=== PATIENT | male | born 1945 | race Caucasian/White ===

== ENCOUNTER 2017-05-20 12:59 | Inpatient (IN) | payer MEDICARE, BC ==
[~2017-05-20] VITALS: Ht 177.8 cm; Wt 101.5 kg
[~2017-05-20 12:59] MED LIST: ALBUTEROL SULFAT3 M3 IH; ALBUTEROL0.83 MG/ML IH; AMLODIPINE5 MG PO; AMOXICILLIN 8751 TAB PO; ASPIRIN 32325 MG/TAB PO; ASPIRIN 81M81 MG/TA2 PO; ASPIRIN E.C. 8181 MG PO; ATIVAN 0.50.5 MG/TAB PO; ATIVAN 1MG T1 MG/TAB PO; ATIVAN0.5 MG PO; ATORVASTATIN PO; CARAFATE 1GM1 G PO; CEPHALEXIN500 M1 PO; CLOPIDOGREL PO; COMBIRESP IH; COMBIVENT INH14.7 GM IH; CORGARD 40M40 MG/TAB; CORGARD 40M40 MG/TAB PO; CORGARD20 MG PO; CORGARD40 MG PO; COUMADIN; COUMADIN 22.5 MG/TAB PO; COUMADIN 5MG5 MG/TAB PO; COUMADIN 77.5 MG/TAB PO; DIOVAN 160MG160 MG PO; DIOVAN 80MG80 MG PO; DIOVAN80 M1 PO; DIOVAN80 MG PO; EFFIENT10 MG PO; EFFIENT5 MG PO; FERROUS SU325 MG/TAB PO; GLUCOPHAGE XR500 M1 PO; HYDROCOD BIT &120 ML PO; IMDUR 30MG30 MG/TAB PO; IMDUR 60MG60 MG/TAB PO; IRON325 MG PO; KLOR-CON 1010 MEQ PO; LOVENOX 100100 MG/ML SQ; MUCINEX 60600 MG/TA1 PO; NADOLOL PO; NITRO-DUR0.4 MG/PAT TD; NITROSTAT0.4 MG/TAB SL; NORCO 325 MG-51 TAB PO; NORVASC 10MG10 MG PO; NORVASC 5MG5 MG/TAB PO; NORVASC2.5 MG PO; PREDNISONE10 MG PO; PRILOSEC 20MG20 MG PO; PROTONIX 40MG T40 MG PO; QUININE; TRICOR 48MG48 MG PO; TYLENOL 500MG500 MG PO; TYLENOL ARTHRI650 M1 PO; XANAX .25M0.25 MG/TA PO; ZEBETA 5MG5 MG PO; ZETIA 10MG TAB10 MG PO; [UNRECOGNIZED DRUG - OTHER] PO
[2017-05-20 13:35] LABS: BASO # 0.1 (0.0-0.2); BASO % 1.1 % (0.0-2.0); EOS # 0.3 (0.0-0.7); EOS % 3.5 % (0-4.0); GRAN % 67.6 % (42.2-75.2); HEMATOCRIT 38.5 % (42.0-52.0); LYMPH # 1.4 (1.2-3.4); LYMPH % 18.2 % (20.0-51.0); MEAN CELL VOLUME 83 fl (80.0-100.0); MEAN CORPUSCULAR HEMOGLOBIN 25 pg (27.0-31.0); MEAN CORPUSCULAR HGB CONC 30 g/dl (33.0-37.0); MEAN PLATELET VOLUME 9.4 fl (7.4-10.4); MONO # 0.7 (0.1-0.6); MONO % 9.2 % (1.7-9.3); PLATELET COUNT 280 K/mm3 (130-400); RED BLOOD COUNT 4.63 M/mm3 (4.20-5.60); REDCELL DISTRIBUTION WIDTH-CV 15.9 % (11.5-14.5); WHITE BLOOD COUNT 7.4 K/mm3 (4.8-10.8)
[2017-05-20 13:36] LABS: HEMOGLOBIN 11.6 g/dl (13.5-18.0)
[2017-05-20 13:40] LABS: INR 2.2 (0.8-3.0); PROTHROMBIN TIME 25.3 SECONDS (9.7-12.8)
[2017-05-20 14:20] LABS: ADJUSTED CALCIUM 10.2 mg/dL (8.4-10.2); ALBUMIN 4.1 gm/dL (3.5-5.0); BILIRUBIN,TOTAL 0.4 mg/dL (0.0-1.0); CALCIUM 10.3 mg/dL (8.4-10.2); CREATININE, serum 0.77 mg/dL (0.66-1.25); POTASSIUM 3.9 mmol/L (3.4-5.0)
[2017-05-20 16:33] LABS: TROPONIN-I 0.051 ng/mL (0.000-0.034)
[2017-05-20 18:26] VITALS: BP 121/78; PULSE 94; TEMP 98.4
[2017-05-20 20:54] VITALS: BP 135/61; PULSE 71; TEMP 98.1
[2017-05-21] VITALS (167 sets, daily range): BP systolic 111–168; BP diastolic 50–104; PULSE 69–76; TEMP 97.2–97.8; O2SAT 82–97
[2017-05-21 07:36] LABS: BASO % 0.5 % (0.0-2.0); EOS # 0.2 (0.0-0.7); EOS % 3.1 % (0-4.0); GRAN # 5.4 (1.4-6.5); GRAN % 72.2 % (42.2-75.2); LYMPH # 1.2 (1.2-3.4); LYMPH % 15.6 % (20.0-51.0); MEAN CELL VOLUME 83 fl (80.0-100.0); MEAN CORPUSCULAR HGB CONC 31 g/dl (33.0-37.0); MEAN PLATELET VOLUME 9.4 fl (7.4-10.4); MONO # 0.6 (0.1-0.6); MONO % 8.3 % (1.7-9.3); PLATELET COUNT 234 K/mm3 (130-400); RED BLOOD COUNT 4.27 M/mm3 (4.20-5.60); REDCELL DISTRIBUTION WIDTH-CV 15.8 % (11.5-14.5); WHITE BLOOD COUNT 7.5 K/mm3 (4.8-10.8)
[2017-05-21 07:56] LABS: CALCIUM 9.6 mg/dL (8.4-10.2); CREATININE, serum 0.75 mg/dL (0.66-1.25); POTASSIUM 4.2 mmol/L (3.4-5.0)
[2017-05-21 07:57] LABS: HEMATOCRIT 35.4 % (42.0-52.0); HEMOGLOBIN 10.8 g/dl (13.5-18.0); MEAN CORPUSCULAR HEMOGLOBIN 25 pg (27.0-31.0)
[2017-05-21 08:07] LABS: INR 2.2 (0.8-3.0); PROTHROMBIN TIME 25.5 SECONDS (9.7-12.8)
[2017-05-21 08:09] LABS: TROPONIN-I 0.051 ng/mL (0.000-0.034)
[2017-05-22 02:58] VITALS: O2SAT 90
[2017-05-22 03:06] VITALS: BP 120/57; PULSE 72; TEMP 97.7
[2017-05-22 06:44] LABS: MEAN CELL VOLUME 82 fl (80.0-100.0); MEAN CORPUSCULAR HGB CONC 31 g/dl (33.0-37.0); MEAN PLATELET VOLUME 9.3 fl (7.4-10.4); PLATELET COUNT 261 K/mm3 (130-400); REDCELL DISTRIBUTION WIDTH-CV 15.8 % (11.5-14.5); WHITE BLOOD COUNT 12.7 K/mm3 (4.8-10.8)
[2017-05-22 06:53] LABS: INR 2.1 (0.8-3.0); PROTHROMBIN TIME 23.4 SECONDS (9.7-12.8)
[2017-05-22 06:58] LABS: HEMATOCRIT 35.2 % (42.0-52.0); HEMOGLOBIN 10.8 g/dl (13.5-18.0); MEAN CORPUSCULAR HEMOGLOBIN 25 pg (27.0-31.0)
[2017-05-22 06:59] LABS: ADD PATHOLOGY DIFF REVIEW NO
[2017-05-22 07:11] LABS: CALCIUM 9.9 mg/dL (8.4-10.2); CREATININE, serum 0.75 mg/dL (0.66-1.25); POTASSIUM 4.1 mmol/L (3.4-5.0)
[2017-05-22 08:00] LABS: BAND 14 % (0-10); NEUTROPHILS 81 % (42.0-75.2); TOTAL CELLS COUNTED 100
[2017-05-22 08:01] LABS: HYPOCHROMIA 2+
[2017-05-22 08:02] LABS: OVALOCYTES 1+; PLATELET ESTIMATE NORMAL (NORMAL); POIKILOCYTOSIS 1+
[2017-05-22 08:03] VITALS: BP 120/60; PULSE 71; TEMP 97.3
[2017-05-22 08:36] VITALS: BP 124/64; PULSE 82; TEMP 98.6
[2017-05-22] MEDS ORDERED: EFFIENT10 MG PO (11:34)
[2017-05-22 11:47] VITALS: BP 126/70; PULSE 72; TEMP 99.8
== END 2017-05-22 13:45 | disposition home or self-care (01) | DRG 247 ==
LOC: COL.ER 12:59 → MEDICAL 17:02 → ICU 05-21 17:58
PROVIDERS: Emergency Medicine; Family Medicine; Internal Medicine Cardiovascular Disease
PROC: B2111ZZ Fluoroscopy of Multiple Coronary Arteries using Low Osmolar Contrast (ICD-10-PCS; principal; 2017-05-21)
PROC: 027034Z Dilation of Coronary Artery, One Artery with Drug-eluting Intraluminal Device, Percutaneous Approach (ICD-10-PCS; 2017-05-21)
DX: I21.4 Non-ST elevation (NSTEMI) myocardial infarction (principal); I25.810 Atherosclerosis of coronary artery bypass graft(s) without angina pectoris; T82.858A Stenosis of other vascular prosthetic devices, implants and grafts, initial encounter; I50.32 Chronic diastolic (congestive) heart failure; Z95.810 Presence of automatic (implantable) cardiac defibrillator; I25.82 Chronic total occlusion of coronary artery; J44.9 Chronic obstructive pulmonary disease, unspecified; I11.0 Hypertensive heart disease with heart failure; F17.210 Nicotine dependence, cigarettes, uncomplicated; E11.9 Type 2 diabetes mellitus without complications; Z79.4 Long term (current) use of insulin; Z95.2 Presence of prosthetic heart valve; Z95.1 Presence of aortocoronary bypass graft; Z79.01 Long term (current) use of anticoagulants; I48.91 Unspecified atrial fibrillation; Z95.5 Presence of coronary angioplasty implant and graft; I34.0 Nonrheumatic mitral (valve) insufficiency; K27.7 Chronic peptic ulcer, site unspecified, without hemorrhage or perforation
CPT/HCPCS: 99222-AI; 99232-AI; 99239; C1725; C1760; C1769; C1874; C1887; C1894; C9600; G0378; J1200; J1644; J1650; J1815; J2060; J2250; J2930; J3010; Q9967

== ENCOUNTER 2018-01-20 13:41 | Inpatient (IN) | payer MEDICARE, BC ==
[~2018-01-20] VITALS: Ht 175.3 cm; Wt 105.9 kg
[2018-01-20] VITALS (205 sets, daily range): BP systolic 102–121; BP diastolic 49–77; PULSE 68–77; TEMP 97.4–98.4; O2SAT 61–100
[2018-01-20 14:07] LABS: BASO # 0.1 (0.0-0.2); BASO % 0.6 % (0.0-2.0); EOS # 0.2 (0.0-0.7); EOS % 2.8 % (0-4.0); GRAN # 6.3 (1.4-6.5); GRAN % 75.9 % (42.2-75.2); LYMPH % 12.4 % (20.0-51.0); MEAN CELL VOLUME 79 fl (80.0-100.0); MEAN CORPUSCULAR HGB CONC 27 g/dl (33.0-37.0); MEAN PLATELET VOLUME 9.2 fl (7.4-10.4); MONO # 0.7 (0.1-0.6); MONO % 8.1 % (1.7-9.3); PLATELET COUNT 284 K/mm3 (130-400); RED BLOOD COUNT 2.84 M/mm3 (4.20-5.60); REDCELL DISTRIBUTION WIDTH-CV 19.6 % (11.5-14.5)
[2018-01-20 14:10] LABS: HEMATOCRIT 22.4 % (42.0-52.0); HEMOGLOBIN 6.1 g/dl (13.5-18.0); MEAN CORPUSCULAR HEMOGLOBIN 21 pg (27.0-31.0)
[2018-01-20 14:15] LABS: CALCIUM 9.5 mg/dL (8.4-10.2); CREATININE, serum 0.78 mg/dL (0.66-1.25); POTASSIUM 4.1 mmol/L (3.4-5.0)
[2018-01-20 15:11] LABS: INR 3.1 (0.8-3.0); PROTHROMBIN TIME 35.4 SECONDS (9.7-12.8)
[2018-01-20] MEDS ORDERED: GLUCOPHAGE XR500 M1 PO (17:29)
[2018-01-20] MEDS ORDERED: NITROSTAT0.4 MG/TAB SL (17:33)
[2018-01-20] MEDS ORDERED: PROTONIX 40MG T40 MG PO (17:34)
[2018-01-20] MEDS ORDERED: EFFIENT10 MG PO (17:35)
[2018-01-20] MEDS ORDERED: K-DUR 10 MEQ T10 MEQ PO (17:35)
[2018-01-20] MEDS ORDERED: CARAFATE 1GM1 G PO (17:38)
[2018-01-20] MEDS ORDERED: PHENERGAN W/CO120 M1 PO (17:39)
[2018-01-20] MEDS ORDERED: TRIAMCINOLONE A15 GM TP (17:40)
[2018-01-20] MEDS ORDERED: TYLENOL 500MG500 MG PO (17:40)
[2018-01-20] MEDS ORDERED: COUMADIN 5MG5 MG/TAB PO ×2 (17:41→20:16)
[2018-01-20] MEDS ORDERED: AMOXICILLIN 50500 MG PO (17:41)
[2018-01-20] MEDS ORDERED: LIPITOR 80MG80 MG PO (17:42)
[2018-01-20] MEDS ORDERED: ZEBETA 5MG5 MG PO (17:42)
[2018-01-20] MEDS ORDERED: CELEXA10 MG PO (17:43)
[2018-01-20] MEDS ORDERED: LOTRISONE CREAM15 GM TP (17:43)
[2018-01-20] MEDS ORDERED: COMBIRESP IH (17:43)
[2018-01-20] MEDS ORDERED: TRICOR145 MG PO (17:44)
[2018-01-20] MEDS ORDERED: CLARITIN 1010 MG/TAB PO (17:44)
[2018-01-20] MEDS ORDERED: NORCO 325 MG-51 TAB PO (17:44)
[2018-01-20] MEDS ORDERED: ATIVAN 0.50.5 MG/TAB PO (17:45)
[2018-01-20] MEDS ORDERED: COUMADIN 77.5 MG/TAB PO (20:17)
[2018-01-20 20:59] LABS: HEMATOCRIT 22.7 % (42.0-52.0)
[2018-01-21] VITALS (140 sets, daily range): BP systolic 98–152; BP diastolic 31–79; PULSE 64–82; TEMP 97.9–98.6; O2SAT 84–100
[2018-01-21 01:29] LABS: HEMATOCRIT 22.6 % (42.0-52.0); HEMOGLOBIN 6.3 g/dl (13.5-18.0)
[2018-01-21 06:00] LABS: BASO # 0.1 (0.0-0.2); BASO % 0.7 % (0.0-2.0); EOS # 0.2 (0.0-0.7); EOS % 2.4 % (0-4.0); GRAN % 70.5 % (42.2-75.2); LYMPH # 1.1 (1.2-3.4); MEAN CELL VOLUME 80 fl (80.0-100.0); MEAN CORPUSCULAR HGB CONC 28 g/dl (33.0-37.0); MEAN PLATELET VOLUME 9.5 fl (7.4-10.4); MONO # 0.7 (0.1-0.6); PLATELET COUNT 258 K/mm3 (130-400); RED BLOOD COUNT 3.38 M/mm3 (4.20-5.60); REDCELL DISTRIBUTION WIDTH-CV 18.5 % (11.5-14.5)
[2018-01-21 06:01] LABS: HEMATOCRIT 27.1 % (42.0-52.0); HEMOGLOBIN 7.5 g/dl (13.5-18.0); MEAN CORPUSCULAR HEMOGLOBIN 22 pg (27.0-31.0)
[2018-01-21 06:02] LABS: INR 2.4 (0.8-3.0); PROTHROMBIN TIME 27.5 SECONDS (9.7-12.8)
[2018-01-21 06:13] LABS: CALCIUM 9.1 mg/dL (8.4-10.2); CHOLESTEROL RISK RATIO 3.4; CREATININE, serum 0.8 mg/dL (0.66-1.25); POTASSIUM 4.1 mmol/L (3.4-5.0)
[2018-01-21 06:22] LABS: TROPONIN-I 0.03 ng/mL (0.000-0.034)
[2018-01-21 10:08] LABS: HEMATOCRIT 26.9 % (42.0-52.0); HEMOGLOBIN 7.7 g/dl (13.5-18.0)
[2018-01-21 13:09] LABS: HEMATOCRIT 28.4 % (42.0-52.0); HEMOGLOBIN 8.1 g/dl (13.5-18.0)
[2018-01-21 21:19] LABS: HEMATOCRIT 26.9 % (42.0-52.0); HEMOGLOBIN 7.7 g/dl (13.5-18.0)
[2018-01-22] VITALS (17 sets, daily range): BP systolic 104–159; BP diastolic 28–88; PULSE 57–79; TEMP 97.6–98.9
[2018-01-22 06:40] LABS: HEMOGLOBIN 7.1 g/dl (13.5-18.0)
[2018-01-22 09:29] LABS: IRON,SERUM 28 ug/dL (35-150)
[2018-01-22 09:38] LABS: TOTAL IRON BINDING CAPACITY 355 ug/dL (261-462)
[2018-01-22 10:05] LABS: FERRITIN 9 ng/mL (18-464)
[2018-01-22 15:52] LABS: HEMATOCRIT 30.2 % (42.0-52.0); HEMOGLOBIN 8.7 g/dl (13.5-18.0)
[2018-01-22 21:09] LABS: HEMATOCRIT 27.7 % (42.0-52.0); HEMOGLOBIN 8.1 g/dl (13.5-18.0)
[2018-01-23] VITALS (462 sets, daily range): BP systolic 99–180; BP diastolic 51–93; PULSE 65–82; TEMP 97.6–98.2; O2SAT 74–100
[2018-01-23 06:56] LABS: BASO % 0.6 % (0.0-2.0); EOS # 0.2 (0.0-0.7); EOS % 3.2 % (0-4.0); GRAN # 4.7 (1.4-6.5); LYMPH # 0.8 (1.2-3.4); LYMPH % 12.4 % (20.0-51.0); MEAN CELL VOLUME 81 fl (80.0-100.0); MEAN CORPUSCULAR HGB CONC 29 g/dl (33.0-37.0); MEAN PLATELET VOLUME 9.4 fl (7.4-10.4); MONO # 0.6 (0.1-0.6); MONO % 9.5 % (1.7-9.3); PLATELET COUNT 218 K/mm3 (130-400); RED BLOOD COUNT 3.59 M/mm3 (4.20-5.60); REDCELL DISTRIBUTION WIDTH-CV 19.2 % (11.5-14.5)
[2018-01-23 07:16] LABS: HEMATOCRIT 28.9 % (42.0-52.0); HEMOGLOBIN 8.3 g/dl (13.5-18.0); MEAN CORPUSCULAR HEMOGLOBIN 23 pg (27.0-31.0)
[2018-01-23 07:18] LABS: CALCIUM 9.1 mg/dL (8.4-10.2); CREATININE, serum 0.73 mg/dL (0.66-1.25); POTASSIUM 4.2 mmol/L (3.4-5.0)
[2018-01-23 08:05] LABS: INR 1.4 (0.8-3.0); PROTHROMBIN TIME 15.4 SECONDS (9.7-12.8)
[2018-01-23 12:08] LABS: BASO # 0.1 (0.0-0.2); BASO % 0.6 % (0.0-2.0); EOS # 0.2 (0.0-0.7); EOS % 1.4 % (0-4.0); GRAN # 9.5 (1.4-6.5); GRAN % 88.3 % (42.2-75.2); LYMPH # 0.6 (1.2-3.4); LYMPH % 5.8 % (20.0-51.0); MEAN CELL VOLUME 81 fl (80.0-100.0); MEAN CORPUSCULAR HGB CONC 28 g/dl (33.0-37.0); MEAN PLATELET VOLUME 9.4 fl (7.4-10.4); MONO # 0.4 (0.1-0.6); MONO % 3.5 % (1.7-9.3); PLATELET COUNT 236 K/mm3 (130-400); RED BLOOD COUNT 3.92 M/mm3 (4.20-5.60); REDCELL DISTRIBUTION WIDTH-CV 19.8 % (11.5-14.5)
[2018-01-23 12:09] LABS: HEMATOCRIT 31.7 % (42.0-52.0); MEAN CORPUSCULAR HEMOGLOBIN 23 pg (27.0-31.0)
[2018-01-23 12:17] LABS: CALCIUM 9.1 mg/dL (8.4-10.2); CREATININE, serum 0.71 mg/dL (0.66-1.25); POTASSIUM 4.5 mmol/L (3.4-5.0)
[2018-01-23 12:29] LABS: TROPONIN-I 0.016 ng/mL (0.000-0.034)
[2018-01-23 12:36] LABS: ARTERIAL BLD GAS O2 SATURATION 92.1 % (92-100); ARTERIAL BLD GAS TCO2 CT 22.7; ARTERIAL BLOOD GAS BASE EXCESS -4.3 (-2-2); ARTERIAL BLOOD GAS HCO3 21.4 meq/L (22-26); ARTERIAL BLOOD GAS PCO2 41.7 mmHg (35-45); ARTERIAL BLOOD GAS pH 7.33 (7.35-7.45)
[2018-01-23 17:02] LABS: BASO % 0.2 % (0.0-2.0); EOS % 0.1 % (0-4.0); GRAN # 8.1 (1.4-6.5); GRAN % 93.6 % (42.2-75.2); LYMPH # 0.4 (1.2-3.4); LYMPH % 4.1 % (20.0-51.0); MEAN CELL VOLUME 80 fl (80.0-100.0); MEAN CORPUSCULAR HGB CONC 29 g/dl (33.0-37.0); MEAN PLATELET VOLUME 9.7 fl (7.4-10.4); MONO # 0.1 (0.1-0.6); PLATELET COUNT 225 K/mm3 (130-400); RED BLOOD COUNT 3.75 M/mm3 (4.20-5.60); REDCELL DISTRIBUTION WIDTH-CV 19.3 % (11.5-14.5)
[2018-01-23 17:06] LABS: HEMATOCRIT 30.1 % (42.0-52.0); HEMOGLOBIN 8.6 g/dl (13.5-18.0); MEAN CORPUSCULAR HEMOGLOBIN 23 pg (27.0-31.0)
[2018-01-23 17:15] LABS: CREATININE, serum 0.7 mg/dL (0.66-1.25); MAGNESIUM 1.6 mg/dL (1.6-2.3); PHOSPHOROUS 4.1 mg/dL (2.5-4.5); POTASSIUM 4.2 mmol/L (3.4-5.0)
[2018-01-23 17:32] LABS: TROPONIN-I 1.42 ng/mL (0.000-0.034)
[2018-01-24] VITALS (939 sets, daily range): BP systolic 105–126; BP diastolic 53–87; PULSE 61–77; TEMP 97–98; O2SAT 54–100
[2018-01-24 05:24] LABS: BASO % 0.2 % (0.0-2.0); EOS % 0.1 % (0-4.0); GRAN # 8.6 (1.4-6.5); LYMPH # 0.6 (1.2-3.4); LYMPH % 5.8 % (20.0-51.0); MEAN CELL VOLUME 82 fl (80.0-100.0); MEAN CORPUSCULAR HGB CONC 29 g/dl (33.0-37.0); MEAN PLATELET VOLUME 9.4 fl (7.4-10.4); MONO # 0.9 (0.1-0.6); MONO % 8.6 % (1.7-9.3); PLATELET COUNT 188 K/mm3 (130-400); RED BLOOD COUNT 3.25 M/mm3 (4.20-5.60); REDCELL DISTRIBUTION WIDTH-CV 19.7 % (11.5-14.5)
[2018-01-24 05:25] LABS: HEMATOCRIT 26.5 % (42.0-52.0); HEMOGLOBIN 7.6 g/dl (13.5-18.0); MEAN CORPUSCULAR HEMOGLOBIN 23 pg (27.0-31.0)
[2018-01-24 05:34] LABS: CALCIUM 9.1 mg/dL (8.4-10.2); CREATININE, serum 0.67 mg/dL (0.66-1.25); POTASSIUM 3.9 mmol/L (3.4-5.0)
[2018-01-24 05:42] LABS: ARTERIAL BLD GAS O2 SATURATION 91.8 % (92-100); ARTERIAL BLD GAS TCO2 CT 29.1; ARTERIAL BLOOD GAS BASE EXCESS 2.7 (-2-2); ARTERIAL BLOOD GAS HCO3 27.7 meq/L (22-26); ARTERIAL BLOOD GAS PCO2 45.3 mmHg (35-45); ARTERIAL BLOOD GAS PO2 66.4 mmHg (80-100); ARTERIAL BLOOD GAS pH 7.41 (7.35-7.45)
[2018-01-25] VITALS (346 sets, daily range): BP systolic 112–116; BP diastolic 52–57; PULSE 73–79; TEMP 97.1–97.2; O2SAT 85–100
[2018-01-25 05:24] LABS: MEAN CELL VOLUME 81 fl (80.0-100.0); MEAN CORPUSCULAR HGB CONC 30 g/dl (33.0-37.0); MEAN PLATELET VOLUME 9.5 fl (7.4-10.4); PLATELET COUNT 179 K/mm3 (130-400); RED BLOOD COUNT 3.72 M/mm3 (4.20-5.60); REDCELL DISTRIBUTION WIDTH-CV 19.5 % (11.5-14.5)
[2018-01-25 05:37] LABS: CALCIUM 9.2 mg/dL (8.4-10.2); CREATININE, serum 0.78 mg/dL (0.66-1.25); POTASSIUM 3.8 mmol/L (3.4-5.0)
[2018-01-25 05:38] LABS: HEMATOCRIT 30.2 % (42.0-52.0); HEMOGLOBIN 8.9 g/dl (13.5-18.0); MEAN CORPUSCULAR HEMOGLOBIN 24 pg (27.0-31.0)
[2018-01-25 05:50] LABS: BAND 6 % (0-10); BASOPHIL 2 % (0-2); HYPOCHROMIA 2+; LYMPHOCYTE 21 % (20.0-51.0); NEUTROPHILS 63 % (42.0-75.2); PLATELET ESTIMATE NORMAL (NORMAL)
[2018-01-25 05:51] LABS: ANISOCYTOSIS 2+; OVALOCYTES 1+
[2018-01-25] MEDS ORDERED: RANEXA 500MG T500 MG PO (09:58)
[2018-01-25] MEDS ORDERED: VASOTEC 5MG5 MG/TAB PO (09:58)
[2018-01-25] MEDS ORDERED: CEFTIN500 MG PO (10:00)
[2018-01-25] MEDS ORDERED: LASIX 40MG TABL40 MG PO (10:01)
[2018-01-25] MEDS ORDERED: FERROUS SU325 MG/TAB PO (10:01)
== END 2018-01-25 13:40 | disposition home or self-care (01) | DRG 981 ==
LOC: COL.ER 13:41 → SURG 15:44 → ICU 15:44 → SURG 01-21 14:32 → ICU 01-23 10:47
PROVIDERS: Emergency Medicine; Family Medicine; Hospitalist; Internal Medicine Pulmonary Disease; Nurse Practitioner; Physician Assistant
PROC: 0DJ08ZZ Inspection of Upper Intestinal Tract, Via Natural or Artificial Opening Endoscopic (ICD-10-PCS; 2018-01-22)
PROC: 0DJD8ZZ Inspection of Lower Intestinal Tract, Via Natural or Artificial Opening Endoscopic (ICD-10-PCS; 2018-01-22)
PROC: B2111ZZ Fluoroscopy of Multiple Coronary Arteries using Low Osmolar Contrast (ICD-10-PCS; principal; 2018-01-23)
PROC: 027034Z Dilation of Coronary Artery, One Artery with Drug-eluting Intraluminal Device, Percutaneous Approach (ICD-10-PCS; 2018-01-23)
PROC: 02703ZZ Dilation of Coronary Artery, One Artery, Percutaneous Approach (ICD-10-PCS; 2018-01-23)
PROC: 4A033BC Measurement of Arterial Pressure, Coronary, Percutaneous Approach (ICD-10-PCS; 2018-01-23)
DX: K92.1 Melena (principal); J96.01 Acute respiratory failure with hypoxia; I50.23 Acute on chronic systolic (congestive) heart failure; I21.4 Non-ST elevation (NSTEMI) myocardial infarction; J18.9 Pneumonia, unspecified organism; D62 Acute posthemorrhagic anemia; D13.2 Benign neoplasm of duodenum; D12.6 Benign neoplasm of colon, unspecified; I25.10 Atherosclerotic heart disease of native coronary artery without angina pectoris; E11.9 Type 2 diabetes mellitus without complications; I11.0 Hypertensive heart disease with heart failure; J44.9 Chronic obstructive pulmonary disease, unspecified; I48.0 Paroxysmal atrial fibrillation; Z95.810 Presence of automatic (implantable) cardiac defibrillator; Z95.5 Presence of coronary angioplasty implant and graft; Z95.2 Presence of prosthetic heart valve; Z95.1 Presence of aortocoronary bypass graft; Z79.01 Long term (current) use of anticoagulants; F17.210 Nicotine dependence, cigarettes, uncomplicated
CPT/HCPCS: 99223-AI; 99233-AI; 99239; C1725; C1751; C1760; C1769; C1874; C1887; C1894; C9113; J0153; J0690; J0696; J0881; J1200; J1815; J1940; J2250; J2270; J2704; J2916; J2930; J3010; J7030; P9016; Q9967

== ENCOUNTER → 2018-02-11 | Outpatient (CLI) | payer MEDICARE, BC ==
[~2018-02-11] MED LIST changes: +AMOXICILLIN 50500 MG PO; +CEFTIN500 MG PO; +CELEXA10 MG PO; +CLARITIN 1010 MG/TAB PO; +K-DUR 10 MEQ T10 MEQ PO; +LASIX 40MG TABL40 MG PO; +LIPITOR 80MG80 MG PO; +LOTRISONE CREAM15 GM TP; +PHENERGAN W/CO120 M1 PO; +RANEXA 500MG T500 MG PO; +TRIAMCINOLONE A15 GM TP; +TRICOR145 MG PO; +VASOTEC 5MG5 MG/TAB PO
== END ==
LOC: COL.RAD 13:17
DX: G31.1 Senile degeneration of brain, not elsewhere classified (principal); G62.9 Polyneuropathy, unspecified

== ENCOUNTER 2018-09-17 09:00 | Outpatient (RCR) | payer MEDICARE, BC ==
[2018-09-17] VITALS (9 sets, daily range): BP systolic 106–132; BP diastolic 54–69; PULSE 68–76; TEMP 97.2–98.7
[~2018-09-17] VITALS: Ht 175.3 cm; Wt 98.0 kg
[2018-09-17] MEDS ORDERED: VASOTEC 5MG5 MG/TAB PO (09:55)
[2018-09-17] MEDS ORDERED: FERRO-TIME325 MG PO (09:56)
[2018-09-17] MEDS ORDERED: LASIX 40MG TABL40 MG PO (09:57)
[2018-09-17] MEDS ORDERED: RANEXA 500MG T500 MG PO (10:02)
[2018-09-17 14:55] LABS: HEMOGLOBIN 9.7 g/dl (13.5-18.0)
[2018-09-17 15:08] LABS: HEMATOCRIT 31.7 % (42.0-52.0)
--- NOTE | 2018-09-17 15:20 | NUR ---
Pt lana blood tx well. Pt discharged per w/c by nurse with .
== END 2018-09-17 15:40 | disposition home or self-care (01) ==
LOC: EUO 09:00
PROVIDERS: Internal Medicine
DX: D50.0 Iron deficiency anemia secondary to blood loss (chronic) (principal)
CPT/HCPCS: J7050; P9016

== ENCOUNTER 2018-09-25 10:00 | Outpatient (RCR) | payer MEDICARE, BC ==
[~2018-09-25] VITALS: Ht 175.3 cm; Wt 100.5 kg
[2018-09-25] VITALS (9 sets, daily range): BP systolic 92–127; BP diastolic 39–87; PULSE 68–75; TEMP 97.3–99
[~2018-09-25 10:00] MED LIST changes: +FERRO-TIME325 MG PO
--- NOTE | 2018-09-25 14:55 | NUR ---
Pt lana blood tx well. Pt discharged per ambulation.
== END 2018-09-25 14:57 | disposition home or self-care (01) ==
LOC: EUO 10:00
DX: I20.9 Angina pectoris, unspecified (principal); R53.83 Other fatigue
CPT/HCPCS: J7050; P9016

== ENCOUNTER 2018-09-26 13:34 | Emergency (ER) | payer MEDICARE, BC ==
[~2018-09-26] VITALS: Ht 175.3 cm; Wt 100.0 kg
[2018-09-26 13:38] VITALS: TEMP 98.4
[2018-09-26 14:13] LABS: ARTERIAL BLD GAS O2 SATURATION 92.1 % (92-100); ARTERIAL BLOOD GAS HCO3 27.7 meq/L (22-26); ARTERIAL BLOOD GAS pH 7.43 (7.35-7.45)
[2018-09-26 14:37] LABS: BASO # 0.1 (0.0-0.2); BASO % 0.8 % (0.0-2.0); EOS # 0.4 (0.0-0.7); EOS % 3.8 % (0-4.0); GRAN % 76.5 % (42.2-75.2); HEMATOCRIT 38.3 % (42.0-52.0); HEMOGLOBIN 11.9 g/dl (13.5-18.0); LYMPH # 0.8 (1.2-3.4); LYMPH % 8.9 % (20.0-51.0); MEAN CELL VOLUME 90 fl (80.0-100.0); MEAN CORPUSCULAR HEMOGLOBIN 28 pg (27.0-31.0); MEAN CORPUSCULAR HGB CONC 31 g/dl (33.0-37.0); MEAN PLATELET VOLUME 9.6 fl (7.4-10.4); MONO # 0.9 (0.1-0.6); MONO % 9.5 % (1.7-9.3); PLATELET COUNT 216 K/mm3 (130-400); RED BLOOD COUNT 4.26 M/mm3 (4.20-5.60); REDCELL DISTRIBUTION WIDTH-CV 14.8 % (11.5-14.5)
[2018-09-26 14:51] LABS: ALBUMIN 3.7 gm/dL (3.5-5.0); BILIRUBIN,TOTAL 0.5 mg/dL (0.0-1.0); CALCIUM 10.1 mg/dL (8.4-10.2); CREATININE, serum 0.76 mg/dL (0.66-1.25); POTASSIUM 4.2 mmol/L (3.4-5.0); TOTAL PROTEIN 6.9 gm/dL (6.4-8.2)
[2018-09-26 15:23] LABS: PROLACTIN 13.8 ng/mL (3.7-17.9)
[2018-09-26 15:30] VITALS: BP 138/58; PULSE 82
== END 2018-09-26 15:30 | disposition home or self-care (01) ==
LOC: COL.ER 13:34
PROVIDERS: Family Medicine
DX: G45.9 Transient cerebral ischemic attack, unspecified (principal); R41.0 Disorientation, unspecified; I48.91 Unspecified atrial fibrillation; Z95.0 Presence of cardiac pacemaker; Z79.84 Long term (current) use of oral hypoglycemic drugs
CPT/HCPCS: J7030

== ENCOUNTER → 2018-12-04 | Outpatient (CLI) | payer MEDICARE, BC ==
[~2018-12-04] MED LIST changes: +PREDNISONE20 MG PO; +VALTREX1 GM PO
== END ==
LOC: COL.RAD 15:03
DX: G31.9 Degenerative disease of nervous system, unspecified (principal); G45.9 Transient cerebral ischemic attack, unspecified

== ENCOUNTER 2018-12-06 16:09 | Emergency (ER) | payer MEDICARE, BC ==
[~2018-12-06] VITALS: Ht 175.3 cm; Wt 118.2 kg
[~2018-12-06 16:09] MED LIST changes: -PREDNISONE20 MG PO; -VALTREX1 GM PO
[2018-12-06 16:14] VITALS: TEMP 98.4
[2018-12-06 16:45] LABS: BASO # 0.1 (0.0-0.2); BASO % 0.9 % (0.0-2.0); EOS # 0.4 (0.0-0.7); EOS % 4.4 % (0-4.0); GRAN # 6.7 (1.4-6.5); GRAN % 74.4 % (42.2-75.2); HEMATOCRIT 39.7 % (42.0-52.0); HEMOGLOBIN 12.4 g/dl (13.5-18.0); LYMPH % 10.8 % (20.0-51.0); MEAN CELL VOLUME 93 fl (80.0-100.0); MEAN CORPUSCULAR HEMOGLOBIN 29 pg (27.0-31.0); MEAN CORPUSCULAR HGB CONC 31 g/dl (33.0-37.0); MEAN PLATELET VOLUME 9.1 fl (7.4-10.4); MONO # 0.8 (0.1-0.6); MONO % 8.8 % (1.7-9.3); PLATELET COUNT 292 K/mm3 (130-400); RED BLOOD COUNT 4.29 M/mm3 (4.20-5.60); REDCELL DISTRIBUTION WIDTH-CV 16.8 % (11.5-14.5)
[2018-12-06 16:51] LABS: BILIRUBIN,TOTAL 0.3 mg/dL (0.0-1.0); CALCIUM 10.3 mg/dL (8.4-10.2); CREATININE, serum 0.98 (0.66-1.25); POTASSIUM 4.5 mmol/L (3.4-5.0); TOTAL PROTEIN 7.1 gm/dL (6.4-8.2)
[2018-12-06] MEDS ORDERED: PREDNISONE20 MG PO (18:01)
[2018-12-06] MEDS ORDERED: VALTREX1 GM PO (18:01)
[2018-12-06 18:28] VITALS: BP 121/53; PULSE 65
== END 2018-12-06 18:28 | disposition home or self-care (01) ==
LOC: COL.ER 16:09
PROVIDERS: Emergency Medicine
DX: R29.810 Facial weakness (principal); I25.10 Atherosclerotic heart disease of native coronary artery without angina pectoris; E11.9 Type 2 diabetes mellitus without complications; F17.210 Nicotine dependence, cigarettes, uncomplicated; I10 Essential (primary) hypertension; Z79.82 Long term (current) use of aspirin; Z79.02 Long term (current) use of antithrombotics/antiplatelets; Z86.73 Personal history of transient ischemic attack (TIA), and cerebral infarction without residual deficits; Z95.4 Presence of other heart-valve replacement
CPT/HCPCS: J7512

== ENCOUNTER 2019-03-19 14:05 | Outpatient (CLI) | payer MEDICARE, BC ==
[~2019-03-19] VITALS: Ht 175.3 cm; Wt 95.9 kg
[2019-03-19] VITALS (9 sets, daily range): BP systolic 97–132; BP diastolic 41–80; PULSE 62–75; TEMP 97.9–98.9
[~2019-03-19 14:05] MED LIST changes: +PREDNISONE20 MG PO; +VALTREX1 GM PO
[2019-03-19] MEDS ORDERED: PACERONE200 MG PO (14:40)
[2019-03-19] MEDS ORDERED: ASPIRIN E.C. 8181 MG PO (14:50)
[2019-03-19] MEDS ORDERED: CLARITIN 1010 MG/TAB PO (14:55)
[2019-03-19] MEDS ORDERED: CARAFATE 1GM1 G PO (14:57)
== END 2019-03-19 20:38 | disposition home or self-care (01) ==
LOC: EUO 14:05 → COL.LAB 14:05 → EUO 20:38
DX: I20.9 Angina pectoris, unspecified (principal); Z87.19 Personal history of other diseases of the digestive system
CPT/HCPCS: J7050; P9016

== ENCOUNTER 2019-03-29 07:29 | Outpatient (RCR) | payer MEDICARE, BC ==
[~2019-03-29] VITALS: Ht 175.3 cm; Wt 99.5 kg
[~2019-03-29 07:29] MED LIST changes: +PACERONE200 MG PO
[2019-03-29 07:30] VITALS: BP 120/51; PULSE 58; TEMP 98.1
[2019-03-29 07:35] LABS: MEAN CELL VOLUME 89 fl (80.0-100.0); MEAN CORPUSCULAR HGB CONC 29 g/dl (33.0-37.0); MEAN PLATELET VOLUME 9.4 fl (7.4-10.4); PLATELET COUNT 283 K/mm3 (130-400); RED BLOOD COUNT 3.87 M/mm3 (4.20-5.60); REDCELL DISTRIBUTION WIDTH-CV 19.5 % (11.5-14.5)
[2019-03-29 07:38] LABS: HEMATOCRIT 34.3 % (42.0-52.0); HEMOGLOBIN 9.9 g/dl (13.5-18.0); MEAN CORPUSCULAR HEMOGLOBIN 26 pg (27.0-31.0)
[2019-03-29] MEDS ORDERED: NATURAL IRON65 MG PO (07:49)
[2019-03-29 08:58] VITALS: BP 134/62; PULSE 70; TEMP 97.9
[2019-03-29 09:16] VITALS: BP 144/67; PULSE 66; TEMP 98.1
[2019-03-29 09:31] VITALS: BP 154/82; PULSE 70; TEMP 98.1
[2019-03-29 10:01] VITALS: BP 132/66; PULSE 70; TEMP 98.1
[2019-03-29 11:01] VITALS: BP 143/65; PULSE 70; TEMP 98.1
--- NOTE | 2019-03-29 11:25 | NUR ---
Pt lana blood tx well. Pt discharged per ambulation with cane with .
== END 2019-03-29 13:37 | disposition home or self-care (01) ==
LOC: EUO 07:29
PROVIDERS: Internal Medicine
DX: D50.0 Iron deficiency anemia secondary to blood loss (chronic) (principal); K92.2 Gastrointestinal hemorrhage, unspecified; I50.9 Heart failure, unspecified
CPT/HCPCS: J7050; P9016

== ENCOUNTER 2019-04-02 09:47 | Day surgery (SDC) | payer MEDICARE, BC ==
[2019-04-02] VITALS (15 sets, daily range): BP systolic 118–162; BP diastolic 57–87; PULSE 69–74; TEMP 9.9
[~2019-04-02] VITALS: Ht 175.4 cm; Wt 99.3 kg
[~2019-04-02 09:47] MED LIST changes: +NATURAL IRON65 MG PO
[2019-04-02 10:40] LABS: HEMATOCRIT 39.9 % (42.0-52.0); HEMOGLOBIN 11.7 g/dl (13.5-18.0); MEAN CELL VOLUME 87 fl (80.0-100.0); MEAN CORPUSCULAR HEMOGLOBIN 26 pg (27.0-31.0); MEAN CORPUSCULAR HGB CONC 29 g/dl (33.0-37.0); MEAN PLATELET VOLUME 9.3 fl (7.4-10.4); PLATELET COUNT 289 K/mm3 (130-400); RED BLOOD COUNT 4.59 M/mm3 (4.20-5.60); REDCELL DISTRIBUTION WIDTH-CV 20.2 % (11.5-14.5)
[2019-04-02 10:44] LABS: CALCIUM 9.9 mg/dL (8.4-10.2); CREATININE, serum 0.82 (0.66-1.25); POTASSIUM 4.7 mmol/L (3.4-5.0)
[2019-04-02 10:50] LABS: PROTHROMBIN TIME 12.2 SECONDS (9.7-12.8)
--- NOTE | 2019-04-02 11:25 | NUR ---
Pt to procedure,report to carrie Cueva.
--- NOTE | 2019-04-02 11:34 | NUR ---
SEE MERGE REPORT FOR MEDICATION ADMINISTRATION TIMES WELL INTRA/POST SEDATION ASSESSMENTS.
--- NOTE | 2019-04-02 13:49 | NUR ---
Report received pt to transfer to [facility]
--- NOTE | 2019-04-02 14:51 | NUR ---
1406 Pt complaning of chest pain at a 5. VSS. Pt falls back to sleep without continuous verbal stimuli. paged. 1432 No return call from . Pt asleep and snoring. When Pt woken and asked about pain he states pain is at a 5 and goes thru to his back. Pt's VSS. Pt fell back to sleep. EKG done. COATER paged. Jossy returned paged and notified of above. States she will review chart and ekg and call back. 1451 Jossy SNYDER called this RN and gave orders for nitro gtt. 1530 Pt states after repositioning states his CP and back has resolved. Will continue to [facility].
[2019-04-02] MEDS ORDERED: ASPIRIN 81M81 MG/TA2 PO (16:12)
[2019-04-02] MEDS ORDERED: PLAVIX 75MG TAB75 MG PO (16:14)
[2019-04-02] MEDS ORDERED: RANEXA 500MG T500 MG PO (16:16)
--- NOTE | 2019-04-02 18:45 | NUR ---
10cc of air removed from Safegaurd device. Small [place] of blood still present from the past 3 hours with no change. Will continue to [facility].
--- NOTE | 2019-04-02 19:08 | NUR ---
10CC OF AIR REMOVED FROM R FEMORAL SAFEGAURD DEVICE. NO CHANGES TO SMALL DRAINAGE FROM EARLIER. GROIN SOFT WITH NO PAIN. PULSES PALPABLE. WILL ENDORSE TO NIGHT RN.
[2019-04-03] VITALS: BP 122/77; PULSE 71; TEMP 98.4
[2019-04-03 04:00] VITALS: BP 101/55; PULSE 69; TEMP 98
[2019-04-03 05:21] LABS: HEMOGLOBIN 10.8 g/dl (13.5-18.0); MEAN CELL VOLUME 86 fl (80.0-100.0); MEAN CORPUSCULAR HEMOGLOBIN 26 pg (27.0-31.0); MEAN CORPUSCULAR HGB CONC 30 g/dl (33.0-37.0); MEAN PLATELET VOLUME 9.6 fl (7.4-10.4); PLATELET COUNT 277 K/mm3 (130-400); REDCELL DISTRIBUTION WIDTH-CV 19.7 % (11.5-14.5)
[2019-04-03 05:22] LABS: HEMATOCRIT 35.9 % (42.0-52.0)
[2019-04-03 05:28] LABS: CALCIUM 9.5 mg/dL (8.4-10.2); CREATININE, serum 0.73 (0.66-1.25); POTASSIUM 4.3 mmol/L (3.4-5.0)
[2019-04-03 05:51] LABS: ANISOCYTOSIS 2+; BAND 10 % (0-10); HYPOCHROMIA 1+; LYMPHOCYTE 2 % (20.0-51.0); NEUTROPHILS 88 % (42.0-75.2); PLATELET ESTIMATE NORMAL (NORMAL)
[2019-04-03 05:52] LABS: OVALOCYTES 1+
--- NOTE | 2019-04-03 07:10 | NUR ---
Bedside report recieved from JUNAID Lane. Patient resting in bed at this time and all questions asked answered. Right femoral site with safegaurd in place, no air to chamber instilled. Site with scant drainage, soft and free of hematoma. Patient denies chest pain or pressure. Nitro gtt infusing at ordered rate and verified at bedside. Care assumed.
[2019-04-03 07:30] VITALS: BP 125/54; PULSE 71; TEMP 98.2
--- NOTE | 2019-04-03 09:45 | NUR ---
Dr. Sam rounds at this time. DC orders recieved as entered CPOE.
[2019-04-03] MEDS ORDERED: IMDUR 60MG60 MG/TAB PO (10:02)
[2019-04-03] MEDS ORDERED: RANEXA 500MG T500 MG PO (10:02)
[2019-04-03] MEDS ORDERED: ASPIRIN E.C. 8181 MG PO (10:03)
--- NOTE | 2019-04-03 11:20 | NUR ---
D/C orders received, IV nitro stopped at this time.
--- NOTE | 2019-04-03 12:10 | NUR ---
DC education provided to patient and family. Understanding verbalized.
--- NOTE | 2019-04-03 12:20 | NUR ---
Patient taken to POC via WC for discharge.
== END 2019-04-03 12:20 | disposition home or self-care (01) ==
LOC: COL.CAR 09:47 → ICU 13:42 → COL.CAR 04-03 12:20
PROVIDERS: Internal Medicine Cardiovascular Disease; Nurse Practitioner
DX: I25.110 Atherosclerotic heart disease of native coronary artery with unstable angina pectoris (principal); R94.39 Abnormal result of other cardiovascular function study; I48.91 Unspecified atrial fibrillation; Z98.61 Coronary angioplasty status; Z88.3 Allergy status to other anti-infective agents; Z91.041 Radiographic dye allergy status; Z88.8 Allergy status to other drugs, medicaments and biological substances; Z86.73 Personal history of transient ischemic attack (TIA), and cerebral infarction without residual deficits; Z95.2 Presence of prosthetic heart valve; Z95.1 Presence of aortocoronary bypass graft
CPT/HCPCS: OP; J0583; J1644; J2250; J2930; J3010; Q9967

== ENCOUNTER 2020-01-17 20:56 | Emergency (ER) | payer MEDICARE, BC ==
[~2020-01-17] VITALS: Ht 177.8 cm; Wt 95.5 kg
[~2020-01-17 20:56] MED LIST changes: +PLAVIX 75MG TAB75 MG PO
[2020-01-17 21:01] VITALS: TEMP 97.9
[2020-01-17 21:41] LABS: ALBUMIN 4.3 gm/dL (3.5-5.0); BILIRUBIN,TOTAL 0.6 mg/dL (0.0-1.0); CALCIUM 10.2 mg/dL (8.4-10.2); CREATININE, serum 0.95 (0.66-1.25); TOTAL PROTEIN 7.5 gm/dL (6.4-8.2)
[2020-01-17 21:42] LABS: BASO # 0.1 (0.0-0.2); BASO % 1.1 % (0.0-2.0); EOS # 0.4 (0.0-0.7); EOS % 4.4 % (0-4.0); GRAN # 6.2 (1.4-6.5); GRAN % 69.2 % (42.2-75.2); HEMATOCRIT 40.4 % (42.0-52.0); HEMOGLOBIN 12.4 g/dl (13.5-18.0); LYMPH # 1.4 (1.2-3.4); LYMPH % 15.5 % (20.0-51.0); MEAN CELL VOLUME 94 fl (80.0-100.0); MEAN CORPUSCULAR HEMOGLOBIN 29 pg (27.0-31.0); MEAN CORPUSCULAR HGB CONC 31 g/dl (33.0-37.0); MEAN PLATELET VOLUME 9.5 fl (7.4-10.4); MONO # 0.9 (0.1-0.6); MONO % 9.5 % (1.7-9.3); PLATELET COUNT 240 K/mm3 (130-400); RED BLOOD COUNT 4.32 M/mm3 (4.20-5.60); REDCELL DISTRIBUTION WIDTH-CV 15.9 % (11.5-14.5)
[2020-01-17 21:52] LABS: TROPONIN-I 0.022 ng/mL (0.000-0.035)
[2020-01-17 22:38] VITALS: BP 124/53; PULSE 69
== END 2020-01-17 22:38 | disposition home or self-care (01) ==
LOC: COL.ER 20:56
PROVIDERS: Emergency Medicine
DX: R07.9 Chest pain, unspecified (principal); E11.9 Type 2 diabetes mellitus without complications; I10 Essential (primary) hypertension; I25.10 Atherosclerotic heart disease of native coronary artery without angina pectoris; E78.5 Hyperlipidemia, unspecified; Z95.810 Presence of automatic (implantable) cardiac defibrillator; Z95.1 Presence of aortocoronary bypass graft; Z79.84 Long term (current) use of oral hypoglycemic drugs
CPT/HCPCS: J7030

== ENCOUNTER 2020-06-21 09:05 | Outpatient (CLI) | payer MEDICARE, BC ==
[~2020-06-21] VITALS: Ht 177.8 cm; Wt 93.2 kg
[2020-06-21] MEDS ORDERED: RANEXA 500MG T500 MG PO (09:32)
[2020-06-21 09:33] VITALS: BP 109/69; PULSE 73
[2020-06-21 09:51] LABS: HEMATOCRIT 43.2 % (42.0-52.0); HEMOGLOBIN 14.4 g/dl (13.5-18.0); MEAN CELL VOLUME 98 fl (80.0-100.0); MEAN CORPUSCULAR HEMOGLOBIN 33 pg (27.0-31.0); MEAN CORPUSCULAR HGB CONC 33 g/dl (33.0-37.0); MEAN PLATELET VOLUME 9.6 fl (7.4-10.4); PLATELET COUNT 195 K/mm3 (130-400); RED BLOOD COUNT 4.42 M/mm3 (4.20-5.60); REDCELL DISTRIBUTION WIDTH-CV 14.1 % (11.5-14.5)
[2020-06-21 09:59] LABS: INR 1.1 (0.8-3.0); PROTHROMBIN TIME 12.4 SECONDS (9.7-12.8)
[2020-06-21 10:00] LABS: CREATININE, serum 0.81 (0.66-1.25); POTASSIUM 4.9 mmol/L (3.4-5.0)
[2020-06-21 11:15] VITALS: BP 109/62; PULSE 72
--- NOTE | 2020-06-21 11:15 | NUR ---
report from Tatiana QUIROGA. Pt doing well after PRABHA< he is gcs 15, pwd, easy breathing on room air. Pt aware of poc, pt is given water and juice which he is able to drink with no problem. wctm.
[2020-06-21 11:20] VITALS: BP 101/62; PULSE 70
[2020-06-21 11:35] VITALS: BP 112/71; PULSE 70
[2020-06-21 11:50] VITALS: BP 131/73; PULSE 73
[2020-06-21 12:05] VITALS: BP 109/73; PULSE 67
--- NOTE | 2020-06-21 12:10 | NUR ---
Pt is ready for discharge. I have reviewed discharge instructions with pt and who deny questions. IV is dc'd with cath intact, dressing applied. pt to exit via wheelchair.
== END 2020-06-21 12:15 | disposition home or self-care (01) ==
LOC: COL.RAD 09:05
PROVIDERS: Internal Medicine Cardiovascular Disease
DX: Z95.818 Presence of other cardiac implants and grafts (principal); Z95.0 Presence of cardiac pacemaker
CPT/HCPCS: J2704

== ENCOUNTER 2020-08-31 18:13 | Emergency (ER) | payer MEDICARE, BC ==
[~2020-08-31] VITALS: Ht 175.3 cm; Wt 90.9 kg
[2020-08-31 18:22] VITALS: TEMP 98.1
[2020-08-31 19:14] LABS: BASO # 0.1 (0.0-0.2); BASO % 0.9 % (0.0-2.0); EOS # 0.3 (0.0-0.7); EOS % 4.1 % (0-4.0); GRAN # 5.5 (1.4-6.5); GRAN % 72.5 % (42.2-75.2); HEMATOCRIT 46.3 % (42.0-52.0); HEMOGLOBIN 15.3 g/dl (13.5-18.0); LYMPH # 1.1 (1.2-3.4); LYMPH % 14.4 % (20.0-51.0); MEAN CELL VOLUME 102 fl (80.0-100.0); MEAN CORPUSCULAR HEMOGLOBIN 34 pg (27.0-31.0); MEAN CORPUSCULAR HGB CONC 33 g/dl (33.0-37.0); MEAN PLATELET VOLUME 9.4 fl (7.4-10.4); MONO # 0.6 (0.1-0.6); MONO % 7.7 % (1.7-9.3); PLATELET COUNT 195 K/mm3 (130-400); RED BLOOD COUNT 4.55 M/mm3 (4.20-5.60)
[2020-08-31 19:19] LABS: ALANINE AMINOTRANSFERASE 18 U/L (4-49); ALBUMIN 3.8 gm/dL (3.5-5.0); ALKALINE PHOSPHATASE 91 U/L (50-136); ANION GAP 8 mmol/L (7-16); AST,SGOT 23 U/L (15-37); BILIRUBIN,TOTAL 0.6 mg/dL (0.0-1.0); BLOOD UREA NITROGEN 18 mg/dL (9-20); CALCIUM 10.1 mg/dL (8.4-10.2); CARBON DIOXIDE 30 mmol/L (22-30); CHLORIDE 99 mmol/L (98-107); CREATININE, serum 0.75 (0.66-1.25); GLUCOSE 151 mg/dL (74-106); POTASSIUM 4.4 mmol/L (3.4-5.0); SODIUM 136 mmol/L (137-145); TOTAL PROTEIN 6.6 gm/dL (6.4-8.2)
[2020-08-31 19:20] LABS: INR 1.2 (0.8-3.0)
[2020-08-31 19:44] LABS: C-REACTIVE PROTEIN < 0.5 mg/dL (0.0-0.9)
[2020-08-31 21:58] VITALS: BP 144/70; PULSE 78
== END 2020-08-31 22:00 | disposition home or self-care (01) ==
LOC: COL.ER 18:13
PROVIDERS: Family Medicine
DX: G45.9 Transient cerebral ischemic attack, unspecified (principal); I25.10 Atherosclerotic heart disease of native coronary artery without angina pectoris; I10 Essential (primary) hypertension; E78.5 Hyperlipidemia, unspecified; Z95.0 Presence of cardiac pacemaker; Z95.9 Presence of cardiac and vascular implant and graft, unspecified; Z88.8 Allergy status to other drugs, medicaments and biological substances; Z79.84 Long term (current) use of oral hypoglycemic drugs

== ENCOUNTER 2021-01-15 12:34 | Day surgery (SDC) | payer MEDICARE, BC ==
[~2021-01-15] VITALS: Ht 175.4 cm; Wt 90.5 kg
[2021-01-15] VITALS (8 sets, daily range): BP systolic 138–175; BP diastolic 69–91; PULSE 65–71; TEMP 98.2
[2021-01-15 14:08] LABS: HEMATOCRIT 42.5 % (42.0-52.0); HEMOGLOBIN 14.3 g/dl (13.5-18.0); MEAN CELL VOLUME 101 fl (80.0-100.0); MEAN CORPUSCULAR HEMOGLOBIN 34 pg (27.0-31.0); MEAN CORPUSCULAR HGB CONC 34 g/dl (33.0-37.0); MEAN PLATELET VOLUME 9.5 fl (7.4-10.4); PLATELET COUNT 182 K/mm3 (130-400); RED BLOOD COUNT 4.23 M/mm3 (4.20-5.60); REDCELL DISTRIBUTION WIDTH-CV 13.2 % (11.5-14.5)
[2021-01-15 14:14] LABS: INR 1.1 (0.8-3.0); PROTHROMBIN TIME 12.4 SECONDS (9.7-12.8)
[2021-01-15 14:21] LABS: CALCIUM 9.6 mg/dL (8.4-10.2); CREATININE, serum 0.7 (0.66-1.25); POTASSIUM 4.4 mmol/L (3.4-5.0)
[2021-01-15] MEDS ORDERED: ASPIRIN E.C. 8181 MG PO (14:39)
[2021-01-15] MEDS ORDERED: RANEXA 500MG T500 MG PO (14:40)
[2021-01-15] MEDS ORDERED: CELEXA10 MG PO (14:40)
[2021-01-15] MEDS ORDERED: PROTONIX 40MG T40 MG PO (14:41)
--- NOTE | 2021-01-15 16:45 | NUR ---
pt returned from industrial laborer via bed, pt is drowsy but opens eyes when spoken too. in room, has large dressing over site to left upper chest that is clean and dry, ice bag applied. pt HOB elevated 40 degrees, call light in reach in room
--- NOTE | 2021-01-15 17:15 | NUR ---
pt having dry heaves and nausea, diaphoretic, more awake. Dr Sam called and order for zofran 4mg iv given at 1720, took few ice chips, pt then dozes. accucheck done also due to diaphoresis spoke with Dr Sam, 116 result
[2021-01-15] MEDS ORDERED: CEPHALEXIN500 M1 PO (17:29)
--- NOTE | 2021-01-15 18:15 | NUR ---
pt took few sips of sprite, has dry heaves again with some nausea, no emesis just phlegm.reviewed appts with pts and new RX to pick pack worker at [facility] or first thing in am antibiotic
--- NOTE | 2021-01-15 18:30 | NUR ---
pt states "feels better" takes ice chips, moves self in bed. skin warm and dry. finished discharge inst. with on care of site, and next appt. report to Jolie QUIROGA
== END 2021-01-17 17:20 | disposition home or self-care (01) ==
LOC: COL.CAR 12:34
PROVIDERS: Internal Medicine Cardiovascular Disease
DX: Z45.010 Encounter for checking and testing of cardiac pacemaker pulse generator [battery] (principal); I25.5 Ischemic cardiomyopathy; I25.10 Atherosclerotic heart disease of native coronary artery without angina pectoris; I38 Endocarditis, valve unspecified; I77.9 Disorder of arteries and arterioles, unspecified; D64.9 Anemia, unspecified; G51.0 Bell's palsy; E11.9 Type 2 diabetes mellitus without complications; J44.9 Chronic obstructive pulmonary disease, unspecified; I48.0 Paroxysmal atrial fibrillation; D50.9 Iron deficiency anemia, unspecified; E66.9 Obesity, unspecified; G47.33 Obstructive sleep apnea (adult) (pediatric); M19.90 Unspecified osteoarthritis, unspecified site; H34.9 Unspecified retinal vascular occlusion; F32.9 Major depressive disorder, single episode, unspecified; F41.9 Anxiety disorder, unspecified; Z85.828 Personal history of other malignant neoplasm of skin; Z79.01 Long term (current) use of anticoagulants; Z86.73 Personal history of transient ischemic attack (TIA), and cerebral infarction without residual deficits; Z95.2 Presence of prosthetic heart valve; Z79.82 Long term (current) use of aspirin; Z79.84 Long term (current) use of oral hypoglycemic drugs; Z79.891 Long term (current) use of opiate analgesic; Z95.1 Presence of aortocoronary bypass graft; Z20.822 Contact with and (suspected) exposure to COVID-19
CPT/HCPCS: C1721; J0690; J2250; J2405; J2930; J3010; J7030; Q9967

== ENCOUNTER 2022-01-02 07:04 | Day surgery (SDC) | payer MEDICARE, BC ==
[~2022-01-02] VITALS: Ht 175.6 cm; Wt 90.0 kg
[2022-01-02] VITALS (538 sets, daily range): BP systolic 98–151; BP diastolic 60–91; PULSE 67–77; TEMP 97.6–98.2; O2SAT 89–99
[2022-01-02 07:50] LABS: HEMATOCRIT 43.4 % (42.0-52.0); HEMOGLOBIN 14.5 g/dl (13.5-18.0); MEAN CELL VOLUME 101 fl (80.0-100.0); MEAN CORPUSCULAR HEMOGLOBIN 34 pg (27-31); MEAN CORPUSCULAR HGB CONC 33 g/dl (33.0-37.0); PLATELET COUNT 192 K/mm3 (130-400); RED BLOOD COUNT 4.31 M/mm3 (4.20-5.60); REDCELL DISTRIBUTION WIDTH-CV 13.8 % (11.5-14.5)
[2022-01-02 07:58] LABS: INR 1.1 (0.8-3.0); PROTHROMBIN TIME 12.2 SECONDS (9.7-12.8)
[2022-01-02 08:00] LABS: PARTIAL THROMBOPLASTIN TIME 34.3 SECONDS (26.0-37.0)
[2022-01-02 08:08] LABS: CALCIUM 9.4 mg/dL (8.4-10.2); CREATININE, serum 0.75 mg/dL (0.72-1.25); POTASSIUM 4.1 mmol/L (3.5-4.5)
[2022-01-02] MEDS ORDERED: CLARITIN 1010 MG/TAB PO (08:50)
--- NOTE | 2022-01-02 09:26 | NUR ---
See merge for all medication, assessment, intervention, and vital sign times.
--- NOTE | 2022-01-02 11:30 | NUR ---
SMALL SPOT OF BLOOD ON GAUZE; WILL MONITOR TO SEE IF IT GETS ANY LARGER
--- NOTE | 2022-01-02 15:42 | NUR ---
Completed 1:1 risk factor education with patient. Pt verbalized understanding. Reviewed plan for referral to be sent to [facility] with patient consent.
--- NOTE | 2022-01-02 19:47 | NUR ---
PATIENT MOVING AROUND IN BED BEFORE FLAT TIME WAS UP; SITE LOOKS UNREMARKABLE WITH NO HEMATOMA AND REMAINS SOFT.
[2022-01-03] VITALS (392 sets, daily range): BP systolic 76–147; BP diastolic 58–73; PULSE 70–80; TEMP 97.5–98.3; O2SAT 82–99
--- NOTE | 2022-01-03 02:30 | NUR ---
CALL TO DR. REECE TO NOTIFY BP READING ON LEFT ARM 98/64, RIGHT ARM 142/65. BOTH READINGS WITH PT LAYING FLAT ON BACK. DR. REECE STATES MAY HAVE TO GO OFF OF RIGHT ARM READING, DIFFERENCE OF READINGS MAY BE SOMETHING THEY HAVE TO FOLLOW UP WITH OUTPATIENT. WILL CONTINUE TO MONITOR.
[2022-01-03 06:11] LABS: HEMATOCRIT 41.6 % (42.0-52.0); HEMOGLOBIN 13.9 g/dl (13.5-18.0); MEAN CELL VOLUME 101 fl (80.0-100.0); MEAN CORPUSCULAR HEMOGLOBIN 34 pg (27-31); MEAN CORPUSCULAR HGB CONC 33 g/dl (33.0-37.0); MEAN PLATELET VOLUME 9.7 fl (7.4-10.4); PLATELET COUNT 221 K/mm3 (130-400); RED BLOOD COUNT 4.11 M/mm3 (4.20-5.60); REDCELL DISTRIBUTION WIDTH-CV 13.8 % (11.5-14.5)
--- NOTE | 2022-01-03 06:31 | NUR ---
PT SITTING UP AT SIDE OF BED WORKING ON PUZZLE BOOK. STATES FEELING FINE THIS AM. BP CONTINUES TO READ DIFFERENTLY ON EACH ARM, HOWEVER BOTH VALUES HAVE MAP >65. GROIN SITE REMAINS SOFT WITH NO ADDITIONAL DRAINAGE. PT DENIES ANY PAIN. HAS BEEN ON RA FOR LAST HOUR, PULSE OXIMETRY OVER 94%. WILL CONTINUE TO MONITOR.
[2022-01-03 06:36] LABS: CALCIUM 9.6 mg/dL (8.4-10.2); CREATININE, serum 0.8 mg/dL (0.72-1.25); POTASSIUM 4.2 mmol/L (3.5-4.5)
[2022-01-03 07:17] LABS: BAND 3 % (0-10); LYMPHOCYTE 4 % (20.0-51.0); NEUTROPHILS 92 % (42.0-75.2); PLATELET ESTIMATE NORMAL (NORMAL)
--- NOTE | 2022-01-03 08:16 | NUR ---
Assessment completed, alert/oriented, vital signs stable, denies pain or discomfort, right femoral access site is soft and non-tender, scant dry drainage noted on dressing but intact and no signs of bleeding or hematoma noted, pedal pulses are palapble, heart RRR, lungs CTA/ no resp.difficulty, denies any chest discomfort, denies any concerns at this time and he is sitting at edge of the bed eating breakfast at this time, will continue to monitor
--- NOTE | 2022-01-03 09:23 | NUR ---
gas worker met with patient to discuss discharge plan. [place] ([phone]). Patient reports to being fully independent with his ADL's and utilizes a cane to assist with mobility. Patient has no home oxygen needs. PCP is Dr. Arredondo and he utilizes [email or web address] for medications with no cost difficulty. Patient states that he does have a DPOA-HC established listing his and his oldest son Pollo. Patient did not have Pollo's phone number at the time of interaction.
--- NOTE | 2022-01-03 10:22 | NUR ---
Initial visit; Patient thanked Development Trainer for stopping and offering God's blessings, joking with him and wishing him well as he goes home.
[2022-01-03] MEDS ORDERED: BRILINTA90 MG PO (10:50)
--- NOTE | 2022-01-03 11:57 | NUR ---
Discharge orders put in for this patient, I have discussed discharge orders/instructions with the patient and his , instructed to follow up with Cardiology as we have scheduled for him, instructed him to take his meds as prescribed, prescription for Brillinta sent to pharmacy for him, instructed him to HOLD his Metformin for 48 and then resume, discussed activtity and bathing restrictions related to his procecure and femoral puncutre site, IV and monitors removed, patient and verbalized understanding of instructions, I escorted him out the door
== END 2022-01-03 12:05 | disposition home or self-care (01) ==
LOC: COL.CAR 07:04 → ICU 11:33 → COL.CAR 01-03 12:05
PROVIDERS: Internal Medicine Cardiovascular Disease
DX: I25.110 Atherosclerotic heart disease of native coronary artery with unstable angina pectoris (principal); T82.855A Stenosis of coronary artery stent, initial encounter; I10 Essential (primary) hypertension; Z95.1 Presence of aortocoronary bypass graft; Z95.5 Presence of coronary angioplasty implant and graft; Z95.818 Presence of other cardiac implants and grafts
CPT/HCPCS: OP; C1725; C1760; C1769; C1874; C1887; C1894; C9600; J0583; J1644; J1815; J2250; J2930; J3010; J7040

== ENCOUNTER 2023-12-30 14:12 | Inpatient (IN) | payer MEDICARE, BC ==
[~2023-12-30] VITALS: Ht 175.3 cm; Wt 82.9 kg
[~2023-12-30 14:12] MED LIST changes: +BRILINTA90 MG PO
[2023-12-30 14:42] LABS: BASO # 0.1 K/mm3 (0.0-0.2); BASO % 0.7 % (0.0-2.0); EOS # 0.2 K/mm3 (0.0-0.7); EOS % 2.5 % (0.0-4.0); GRAN % 74.3 % (42.2-75.2); LYMPH # 0.8 K/mm3 (1.2-3.4); LYMPH % 11.7 % (20.0-51.0); MEAN CELL VOLUME 100 fl (80.0-100.0); MEAN CORPUSCULAR HGB CONC 31 g/dl (33.0-37.0); MEAN PLATELET VOLUME 9.5 fl (7.4-10.4); MONO # 0.7 K/mm3 (0.1-0.6); MONO % 10.5 % (1.7-9.3); PLATELET COUNT 262 K/mm3 (130-400); RED BLOOD COUNT 2.87 M/mm3 (4.20-5.60); REDCELL DISTRIBUTION WIDTH-CV 15.9 % (11.5-14.5)
[2023-12-30 14:44] LABS: HEMATOCRIT 28.7 % (42.0-52.0); MEAN CORPUSCULAR HEMOGLOBIN 31 pg (27-31)
[2023-12-30 15:02] LABS: ALBUMIN 3.1 g/dL (3.4-4.8); BILIRUBIN,TOTAL 0.4 mg/dL (0.2-1.2); CALCIUM 9.7 mg/dL (8.4-10.2); CREATININE, serum 0.79 mg/dL (0.72-1.25); MAGNESIUM 1.9 mg/dL (1.6-2.6); PHOSPHOROUS 2.9 mg/dL (2.3-4.7); POTASSIUM 4.1 mEq/L (3.5-4.5); TOTAL PROTEIN 6.6 g/dl (6.2-8.1)
[2023-12-30 15:11] LABS: TROPONIN-I 0.061 ng/mL (0.00-0.033)
[2023-12-30 15:26] LABS: COLLECTION METHOD CLEAN CATCH
[2023-12-30 15:32] LABS: PH 5.5 (5.0-8.5); URINE APPEARANCE CLEAR (CLEAR/HAZY); URINE BLOOD NEGATIVE (NEGATIVE); URINE COLOR YELLOW (YELLOW); URINE GLUCOSE NEGATIVE (NEGATIVE); URINE KETONE NEGATIVE (NEGATIVE); URINE NITRATE NEGATIVE (NEGATIVE); URINE PROTEIN(semi-quant) NEGATIVE (NEGATIVE); URINE UROBILINOGEN 0.2 E.U/dL (0.2-1.0)
[2023-12-30] MEDS ORDERED: NS 1,000 ML IV ONE (16:00)
[2023-12-30] MEDS ORDERED: cefTRIAXone 1 G in Water For Injection,Sterile 10 ML IV ONE (16:00)
[2023-12-30] MEDS ORDERED: NORCO 325 MG-51 TAB PO (16:52)
[2023-12-30] MEDS ORDERED: ISOSORBIDE MON120 MG PO (16:52)
[2023-12-30] MEDS ORDERED: RANEXA1000 MG PO (16:54)
[2023-12-30] MEDS ORDERED: Magnes Hydrox (MOM) 80 MG/ML 30 ML CUP PO PRN (17:00)
[2023-12-30] MEDS ORDERED: Mag/Al Hydrox/Simeth Susp 30 ML CUP PO PRN (17:00)
[2023-12-30] MEDS ORDERED: Ondansetron 4 MG/2 ML VIAL IV PRN (17:00)
[2023-12-30 17:11] VITALS: BP 110/60; PULSE 105; TEMP 97.4
[2023-12-30] MEDS ORDERED: Acetaminophen 325 MG TAB PO PRN (17:15)
[2023-12-30] MEDS ORDERED: Morphine 4 MG/ML VIAL IV PRN (17:15)
[2023-12-30] MEDS ORDERED: Azithromycin 250 MG TAB PO SCH (17:26)
[2023-12-30] MEDS ORDERED: Albuterol/Ipratropium 3 MG-0.5 MG/3 ML Neb Soln IH PRN (17:30)
[2023-12-30] MEDS ORDERED: Dextrose 50% Water 25 GM/50 ML SYRINGE IV PRN (17:45)
[2023-12-30] MEDS ORDERED: Glucagon 1 MG VIAL IM PRN (17:45)
[2023-12-30] MEDS ORDERED: Dextrose (Glucose) 15 GM (4 x 3.75 GM) Chewable TABLET PACK PO PRN (17:45)
[2023-12-30 17:55] VITALS: BP_SYST 110
--- NOTE | 2023-12-30 18:29 | NUR ---
pt arrived from ED. vitals stable. no chest pain at this time. assessed pt. gave meds that were due. helped pt to the bathroom. pt is standby assist with cane. ordered pt dinner. call light within reach.
[2023-12-30] MEDS ORDERED: Albuterol/Ipratropium 3 MG-0.5 MG/3 ML Neb Soln IH SCH (19:00)
[2023-12-30 19:03] VITALS: BP 143/71; PULSE 79; TEMP 98.2
--- NOTE | 2023-12-30 20:24 | NUR ---
Shift assessment complete. Patient denies any chest pain at rest, states pain is only present if he has been active. Denies any shortness of breath, nausea, palpitations. RT at bedside for nebulizer treatment. Call light is within reach. Bed locked and in low position.
--- NOTE | 2023-12-30 20:51 | NUR ---
Critical troponin called to Dr. Joyce, no new orders.
[2023-12-30 21:00] VITALS: BP_SYST 143
[2023-12-30] MEDS ORDERED: Docusate Sodium 100 MG CAP PO SCH (21:00)
[2023-12-30] MEDS ORDERED: Famotidine 20 MG TAB PO SCH (21:00)
[2023-12-30] MEDS ORDERED: Insulin Lispro (HumaLOG) SQ SCH (21:00)
[2023-12-30] MEDS ORDERED: Melatonin 3 MG TAB PO PRN (21:00)
[2023-12-30 23:11] VITALS: BP 116/53; PULSE 71; TEMP 98.1
[2023-12-31] VITALS (18 sets, daily range): BP systolic 91–126; BP diastolic 42–582; PULSE 69–91; TEMP 97.6–98.5
[2023-12-31] MEDS ORDERED: Albuterol/Ipratropium 3 MG-0.5 MG/3 ML Neb Soln IH SCH (07:00)
[2023-12-31 07:05] LABS: BASO % 0.6 % (0.0-2.0); EOS # 0.2 K/mm3 (0.0-0.7); EOS % 2.5 % (0.0-4.0); GRAN # 4.9 K/mm3 (1.4-6.5); GRAN % 76.3 % (42.2-75.2); LYMPH # 0.7 K/mm3 (1.2-3.4); MEAN CELL VOLUME 98 fl (80.0-100.0); MEAN CORPUSCULAR HGB CONC 32 g/dl (33.0-37.0); MEAN PLATELET VOLUME 9.6 fl (7.4-10.4); MONO # 0.6 K/mm3 (0.1-0.6); MONO % 9.3 % (1.7-9.3); PLATELET COUNT 232 K/mm3 (130-400); REDCELL DISTRIBUTION WIDTH-CV 15.9 % (11.5-14.5); RETIC # 0.13 M/mm3 (0.02-0.16); RETIC % 5.2 % (0.5-3.52)
[2023-12-31 07:07] LABS: HEMATOCRIT 25.5 % (42.0-52.0); HEMOGLOBIN 8.1 g/dl (13.5-18.0); MEAN CORPUSCULAR HEMOGLOBIN 31 pg (27-31)
[2023-12-31 07:08] LABS: INR 1.3 (0.8-3.0); PROTHROMBIN TIME 13.7 SECONDS (9.7-12.8)
[2023-12-31 07:21] LABS: CALCIUM 9.5 mg/dL (8.4-10.2); CHOLESTEROL RISK RATIO 3.2; CREATININE, serum 0.76 mg/dL (0.72-1.25); MAGNESIUM 1.8 mg/dL (1.6-2.6); POTASSIUM 4.2 mEq/L (3.5-4.5)
[2023-12-31] MEDS ORDERED: Isosorbide Mononitrate CR (24-HR) 60 MG TAB PO SCH (07:30)
[2023-12-31] MEDS ORDERED: Bisoprolol 5 MG TAB PO SCH (09:00)
[2023-12-31] MEDS ORDERED: Furosemide 40 MG TAB PO SCH (09:00)
[2023-12-31] MEDS ORDERED: Clopidogrel 75 MG TAB PO SCH (09:00)
[2023-12-31] MEDS ORDERED: Ranolazine ER 500 MG TAB PO SCH (09:00)
[2023-12-31] MEDS ORDERED: Citalopram 20 MG TAB PO SCH (09:00)
--- NOTE | 2023-12-31 09:56 | NUR ---
Patient resting in bed, watching TV. NPO after midnight. Denies any chest pain at this time. just pain in his left side r/t kidney per pt. Assessment completed, no further needs at this time. Call light within reach.
--- NOTE | 2023-12-31 10:13 | NUR ---
Lithographic Retoucher Apprentice met with patient to complete intake. Patient verified that he lives in country at [place], [place] with his /APRYL Mari ([phone]). Patient sees Dr Arredondo as his PCP and uses [facility] pharmacy without difficulty affording medications. Patient uses a cane FWW, scooter and shower chair. Patient plans to return home at discharge Discharge plan: Home
[2023-12-31] MEDS ORDERED: Doxycycline Monohydrate 100 MG CAP PO SCH (11:00)
--- NOTE | 2023-12-31 11:37 | NUR ---
Call placed to cardiology, Alejandra Gonzalez RN and reviewed with Dr. Almanza. No procedures today, NPO status removed.
[2023-12-31] MEDS ORDERED: cefTRIAXone 1 G in Water For Injection,Sterile 10 ML IV SCH (16:00)
[2023-12-31] MEDS ORDERED: Ondansetron 4 MG/2 ML VIAL IV PRN (18:45)
[2023-12-31] MEDS ORDERED: ceFAZolin 1 G in Water For Injection,Sterile 10 ML IV SCH (18:45)
--- NOTE | 2023-12-31 19:16 | NUR ---
Blood transfusion with no problems.
[2023-12-31] MEDS ORDERED: Bisacodyl 5 MG TAB PO SCH (20:45)
[2023-12-31] MEDS ORDERED: Polyethylene Glycol 3350 119 GM BOTTLE PO SCH (20:45)
--- NOTE | 2023-12-31 21:13 | NUR ---
Shift assessment complete. Patient denies any chest pain, palpitations, shortness of breath. Discussed with patient his planned upper GI scope adn colonoscopy for tomorrow and provided his ordered miralax with evening meds. Call light is within reach. Bed locked and in low position. Currently stable on room air.
[2024-01-01] VITALS (18 sets, daily range): BP systolic 82–128; BP diastolic 34–61; PULSE 69–84; TEMP 97.6–98.3
[2024-01-01 01:29] LABS: HEMATOCRIT 25.8 % (42.0-52.0); HEMOGLOBIN 8.6 g/dl (13.5-18.0)
--- NOTE | 2024-01-01 03:34 | NUR ---
RN went into patient's room to start his 0300 dose of zosyn and patient reported he was having a hard time catching his breath. Checked spo2 and was reading between 90-92%, RN applied O2 at 1L via nasal cannula. At this time, he also reported that despite having taken the ordered dulcolax and drinking his miralax, he has not yet had a bowel movement.
--- NOTE | 2024-01-01 05:29 | NUR ---
PATIENT REPORTS HE HAS STILL NOT HAD A BOWEL MOVEMENT AND IS CURRENTLY REFUSING TO FINISH HIS MIRALAX BOWEL PREP DRINK.
[2024-01-01 09:10] LABS: BASO % 0.5 % (0.0-2.0); EOS # 0.2 K/mm3 (0.0-0.7); EOS % 2.9 % (0.0-4.0); GRAN # 5.1 K/mm3 (1.4-6.5); GRAN % 79.6 % (42.2-75.2); LYMPH # 0.5 K/mm3 (1.2-3.4); LYMPH % 8.2 % (20.0-51.0); MEAN CELL VOLUME 99 fl (80.0-100.0); MEAN CORPUSCULAR HGB CONC 31 g/dl (33.0-37.0); MEAN PLATELET VOLUME 9.8 fl (7.4-10.4); MONO # 0.6 K/mm3 (0.1-0.6); MONO % 8.5 % (1.7-9.3); PLATELET COUNT 222 K/mm3 (130-400); RED BLOOD COUNT 2.71 M/mm3 (4.20-5.60); REDCELL DISTRIBUTION WIDTH-CV 16.4 % (11.5-14.5)
[2024-01-01 09:14] LABS: HEMATOCRIT 26.8 % (42.0-52.0); HEMOGLOBIN 8.4 g/dl (13.5-18.0); MEAN CORPUSCULAR HEMOGLOBIN 31 pg (27-31)
[2024-01-01 09:16] LABS: CALCIUM 9.5 mg/dL (8.4-10.2); CREATININE, serum 0.83 mg/dL (0.72-1.25); POTASSIUM 4.3 mEq/L (3.5-4.5)
--- NOTE | 2024-01-01 09:18 | NUR ---
Patient resting in bed, alert and oriented x 4, denies any pain or discomfort. Had a large BM early this morning. Took his bowel prep. Awaiting for UG and colonoscopy. Consent signed, on chart. Pt has been coughing with clear mucous sputum. Assessment completed. No further needs at this time. Call light within reach.
--- NOTE | 2024-01-01 11:37 | NUR ---
Data: Bank [employer] Savings Securities Trader visit offered during Bank [employer] Savings [employer] Trader rounds. Patient asked that Bank And Savings Securities Trader return tomorrow. Assessment: Patient was a little overwhelmed with the number of people providing care for him today. Plan of Care: Bank And Savings Securities Trader left note for another Bank [employer] Savings [employer] Trader to visit Patient tomorrow (Friday). Patient thanked Bank [employer] Savings Securities Trader for understanding.
--- NOTE | 2024-01-01 12:28 | NUR ---
BP rechecked since SBp reported by FLASK FITTER in 's. BP 116/61.
--- NOTE | 2024-01-01 13:00 | NUR ---
Patient taken for procedure.
[2024-01-01] MEDS ORDERED: Lidocaine PF 2% (20 MG/ML) 5 ML VIAL ONE (13:27)
[2024-01-01] MEDS ORDERED: fentaNYL 50 MCG/ML 2 ML VIAL ONE (13:27)
[2024-01-01] MEDS ORDERED: ePHEDrine 50 MG/ML VIAL ONE (13:38)
--- NOTE | 2024-01-01 14:40 | NUR ---
Patient arrived from intervention. Alert and oriented x 4, soft BP. Post VS started.
[2024-01-01] MEDS ORDERED: Polyethylene Glycol 3350 119 GM BOTTLE PO SCH (17:00)
[2024-01-01] MEDS ORDERED: Bisacodyl 5 MG TAB PO SCH (17:00)
--- NOTE | 2024-01-01 22:00 | NUR ---
Patient resting in bed. Denies any pain or needs at this time. Assessment complete. IV in right hand flushes easily with no complications. Call light and personal items in reach. Bed in low positon.
[2024-01-02] VITALS (10 sets, daily range): BP systolic 106–135; BP diastolic 40–62; PULSE 70–90; TEMP 97.4–98.1
--- NOTE | 2024-01-02 06:00 | NUR ---
Patient sitting up in bed. Denies any pain or needs this morning. No changes over night. Call ligth and personal items in reach. Bed in low position.
--- NOTE | 2024-01-02 07:30 | NUR ---
DILCIA AWAKE AND ALERT, SITITNG UP IN BED.BANDAR DENIES ANY NEEDS OR COMPLAINTS AT THIS TIME. CALL LIGHT WITHIN [facility]
[2024-01-02 07:47] LABS: BASO % 0.6 % (0.0-2.0); EOS # 0.2 K/mm3 (0.0-0.7); EOS % 2.9 % (0.0-4.0); GRAN # 5.3 K/mm3 (1.4-6.5); GRAN % 76.9 % (42.2-75.2); LYMPH # 0.7 K/mm3 (1.2-3.4); LYMPH % 9.6 % (20.0-51.0); MEAN CELL VOLUME 98 fl (80.0-100.0); MEAN CORPUSCULAR HGB CONC 31 g/dl (33.0-37.0); MEAN PLATELET VOLUME 9.8 fl (7.4-10.4); MONO # 0.7 K/mm3 (0.1-0.6); MONO % 9.6 % (1.7-9.3); PLATELET COUNT 232 K/mm3 (130-400); RED BLOOD COUNT 2.73 M/mm3 (4.20-5.60); REDCELL DISTRIBUTION WIDTH-CV 16.2 % (11.5-14.5)
[2024-01-02 07:48] LABS: HEMATOCRIT 26.8 % (42.0-52.0); HEMOGLOBIN 8.4 g/dl (13.5-18.0); MEAN CORPUSCULAR HEMOGLOBIN 31 pg (27-31)
[2024-01-02 08:04] LABS: CALCIUM 8.9 mg/dL (8.4-10.2); CREATININE, serum 0.73 mg/dL (0.72-1.25); POTASSIUM 3.8 mEq/L (3.5-4.5)
[2024-01-02] MEDS ORDERED: DOXYCYCLINE 10100 MG PO (11:04)
[2024-01-02] MEDS ORDERED: AMOXICILLIN 8751 TAB PO (11:04)
[2024-01-02] MEDS ORDERED: PROTONIX 40MG T40 MG PO (11:23)
[2024-01-02] MEDS ORDERED: FERROUSAL325 MG PO (11:26)
--- NOTE | 2024-01-02 13:00 | NUR ---
PA INFORMED PATIENT EX OX NEGATIVE, HE DOES NOT REQUIRE O2
--- NOTE | 2024-01-02 13:31 | NUR ---
P[ER PA PATIENT MAY DISCHARGE AFTER 1 UNIT BLOOD TRANSFUSION, NO H&H RECHECK NEEDED AT THIS TIME
--- NOTE | 2024-01-02 15:30 | NUR ---
PATIENT TOLERATED BLOOD TRANSFUSION WELL WITH NO S/S OF REACTION. PATIENT IV AND TELE REMOVED. PATIENT ABLE TO DRESS INDEPENDENTLY. PATIENT TAKEN VIA WHEELCHAIR TO PATIENT ENTRANCE WHERE HE LEFT IN STABLE CONDITION.
--- NOTE | 2024-01-02 15:35 | NUR ---
Wood Shingle Roofer attended clinical rounds with the team and patient will be discharged home today. SW presented and reviewed IM form with patient who verbalized understanding and provided signature. SW placed form in chart then provided copy to patient. Discharge Plan; Home
== END 2024-01-02 15:47 | disposition home or self-care (01) | DRG 811 ==
LOC: COL.ER 14:12 → MEDICAL 15:47
PROVIDERS: Emergency Medicine; Internal Medicine Gastroenterology; Physician Assistant; ADMIT Internal Medicine
PROC: 30233N1 Transfusion of Nonautologous Red Blood Cells into Peripheral Vein, Percutaneous Approach (ICD-10-PCS; 2023-12-31)
PROC: 0DJD8ZZ Inspection of Lower Intestinal Tract, Via Natural or Artificial Opening Endoscopic (ICD-10-PCS; 2024-01-01)
PROC: 0DB98ZX Excision of Duodenum, Via Natural or Artificial Opening Endoscopic, Diagnostic (ICD-10-PCS; principal; 2024-01-01 13:00)
PROC: 0DB68ZX Excision of Stomach, Via Natural or Artificial Opening Endoscopic, Diagnostic (ICD-10-PCS; 2024-01-01 13:00)
DX: D50.9 Iron deficiency anemia, unspecified (principal); I21.A1 Myocardial infarction type 2; J18.9 Pneumonia, unspecified organism; J90 Pleural effusion, not elsewhere classified; I25.10 Atherosclerotic heart disease of native coronary artery without angina pectoris; I10 Essential (primary) hypertension; E78.5 Hyperlipidemia, unspecified; F17.210 Nicotine dependence, cigarettes, uncomplicated; E11.9 Type 2 diabetes mellitus without complications; L40.9 Psoriasis, unspecified; I48.91 Unspecified atrial fibrillation; I27.20 Pulmonary hypertension, unspecified; I08.3 Combined rheumatic disorders of mitral, aortic and tricuspid valves; H26.9 Unspecified cataract; K29.70 Gastritis, unspecified, without bleeding; R19.5 Other fecal abnormalities; R59.9 Enlarged lymph nodes, unspecified; I25.5 Ischemic cardiomyopathy; R91.8 Other nonspecific abnormal finding of lung field; J43.9 Emphysema, unspecified; Z88.8 Allergy status to other drugs, medicaments and biological substances; Z91.041 Radiographic dye allergy status; Z95.1 Presence of aortocoronary bypass graft; Z95.2 Presence of prosthetic heart valve; Z95.5 Presence of coronary angioplasty implant and graft; Z95.0 Presence of cardiac pacemaker; Z85.828 Personal history of other malignant neoplasm of skin; Z95.818 Presence of other cardiac implants and grafts; Z79.82 Long term (current) use of aspirin; Z79.84 Long term (current) use of oral hypoglycemic drugs; Z79.899 Other long term (current) drug therapy; Z79.02 Long term (current) use of antithrombotics/antiplatelets; Z87.19 Personal history of other diseases of the digestive system; Z86.73 Personal history of transient ischemic attack (TIA), and cerebral infarction without residual deficits; Z23 Encounter for immunization
CPT/HCPCS: J0696; J1815; J2543; J2704; J3010; J7030; P9016

== ENCOUNTER 2024-03-02 06:48 | Day surgery (SDC) | payer MEDICARE, BC ==
[~2024-03-02] VITALS: Ht 177.8 cm; Wt 86.3 kg
[~2024-03-02 06:48] MED LIST changes: +ASPRUZYO SPRI1000 MG PO; +CHANTIX 1MG1 MG PO; +DECADRON 4MG TAB4 MG PO; +DEMADEX 20MG20 M1 PO; +DOXYCYCLINE 10100 MG PO; +FERROUSAL325 MG PO; +FORTAMET500 M1 PO; +ISOSORBIDE MON120 MG PO; +LR 1,000 ML IV SCH; +RANEXA1000 MG PO; +TYLENOL 325MG325 MG PO
[2024-03-02] MEDS ORDERED: Lidocaine PF 1% (10 MG/ML) 5 ML VIAL ONE (07:56)
[2024-03-02] MEDS ORDERED: ePHEDrine 50 MG/ML VIAL ONE (08:08)
[2024-03-02] MEDS ORDERED: Lidocaine PF 1% (10 MG/ML) 5 ML VIAL MM ONE (08:14)
[2024-03-02] MEDS ORDERED: Lidocaine 2% Viscous 15 ML UNIT DOSE MM ONE (08:14)
[2024-03-02 08:35] VITALS: BP 147/57; PULSE 81; TEMP 97.2
[2024-03-02 08:50] VITALS: BP 146/56; PULSE 66
[2024-03-02 09:05] VITALS: BP 137/48; PULSE 67
[2024-03-02 09:20] VITALS: BP 151/52; PULSE 66
[2024-03-02 09:40] LABS: BASO % 0.5 % (0.0-2.0); EOS # 0.1 K/mm3 (0.0-0.7); EOS % 1.2 % (0.0-4.0); GRAN # 4.5 K/mm3 (1.4-6.5); GRAN % 77.8 % (42.2-75.2); LYMPH # 0.5 K/mm3 (1.2-3.4); LYMPH % 9.3 % (20.0-51.0); MEAN CELL VOLUME 91 fl (80.0-100.0); MEAN CORPUSCULAR HEMOGLOBIN 27 pg (27-31); MEAN CORPUSCULAR HGB CONC 30 g/dl (33.0-37.0); MEAN PLATELET VOLUME 8.7 fl (7.4-10.4); MONO # 0.6 K/mm3 (0.1-0.6); MONO % 10.3 % (1.7-9.3); PLATELET COUNT 191 K/mm3 (130-400); RED BLOOD COUNT 3.67 M/mm3 (4.20-5.60); REDCELL DISTRIBUTION WIDTH-CV 17.6 % (11.5-14.5)
[2024-03-02 09:41] LABS: HEMATOCRIT 33.4 % (42.0-52.0)
--- NOTE | 2024-03-02 10:00 | NUR ---
0835-PT TO BAY 1 PER CART FROM PROCEDURE ROOM. REPORT RECEIVED. VS OBTAINED. CALL LIGHT WITHIN REACH. PT DENIES ANY NEEDS AT THIS TIME. 0850-PT TOLERATING WATER. 0905-PT CONTINUES TO DENY ANY NEEDS. 0925-PT WAITING FOR LABS TO BE DRAWN. DENIES ANY NEEDS. 0940-IV DC'D AT THIS TIME. PT ABLE TO DRESS SELF WITHOUT ASSISTANCE. 0950-DISCHARGE EDUCATION COMPLETED WITH PT AND HIS . VERBALIZED UNDERSTANDING OF HOME AND FOLLOW UP CARE. ALL QUESTIONS ANSWERED. DISCHARGE PAPERWORK GIVEN TO PT. 1000-PT OFF UNIT PER WHEELCHAIR. PT DISCHARGED TO HOME WITH HIS PER PERSONAL VEHICLE.
[2024-03-02 15:15] VITALS: BP 138/56; PULSE 77; TEMP 98.9
== END 2024-03-02 10:00 | disposition home or self-care (01) ==
LOC: SDCO 06:48
PROVIDERS: Internal Medicine Pulmonary Disease
DX: C34.91 Malignant neoplasm of unspecified part of right bronchus or lung (principal); J44.9 Chronic obstructive pulmonary disease, unspecified; F17.210 Nicotine dependence, cigarettes, uncomplicated; G47.33 Obstructive sleep apnea (adult) (pediatric)
CPT/HCPCS: J2704; J7120

== ENCOUNTER 2024-03-08 13:13 | Day surgery (SDC) | payer MEDICARE, BC ==
[~2024-03-08] VITALS: Ht 177.8 cm; Wt 88.3 kg
[2024-03-08 13:45] VITALS: BP 149/75; PULSE 70; TEMP 97.6
[2024-03-08] MEDS ORDERED: Ondansetron 4 MG/2 ML VIAL IV PRN ×2 (14:45→16:00)
[2024-03-08] MEDS ORDERED: Lidocaine PF 2% (20 MG/ML) 5 ML VIAL ONE (15:56)
[2024-03-08] MEDS ORDERED: NS 10 ML IV ONE (15:56)
[2024-03-08] MEDS ORDERED: Meperidine 50 MG/ML 1 ML VIAL IV PRN (16:00)
[2024-03-08] MEDS ORDERED: hydrALAZINE 20 MG/ML 1 ML VIAL IV PRN (16:00)
[2024-03-08] MEDS ORDERED: fentaNYL 50 MCG/ML 1 ML SYRINGE/VIAL [PACU/SDC ONLY] IV PRN (16:00)
[2024-03-08] MEDS ORDERED: HYDROmorphone 1 MG/1 ML SYRINGE [PACU/SDC ONLY] IV PRN (16:00)
[2024-03-08 17:00] VITALS: BP 161/60; PULSE 82; TEMP 96.7
[2024-03-08 17:15] VITALS: BP 133/58; PULSE 73
--- NOTE | 2024-03-08 18:31 | NUR ---
1700- PT RETURNS FROM PROCEDURE VIA CART TO [facility]. MONITORS ON AND ALARMS SET. CALL LIGHT IN REACH. REPORT RECEIVED. PT STILL SLEEPING WITH O2 MASK ON SET AT 3L. 1715- PT IS EASY TO AROUSE. PT REQUESTING FOOD AND DRINK. 1730- PT TOLERATES FOOD AND DRINK WELL WITH NO COMPLICATIONS. 1750- DISCHARGE INSTRUCTIONS GIVEN TO PT. ALL QUESTIONS ANSWERED. 1800- PT TRANSFERRED OUT OF [facility] VIA WHEELCHAIR TO PRIVATE VEHICLE DRIVEN BY .
== END 2024-03-08 18:00 | disposition home or self-care (01) ==
LOC: SDCO 13:13
DX: C34.91 Malignant neoplasm of unspecified part of right bronchus or lung (principal); C79.51 Secondary malignant neoplasm of bone; I25.10 Atherosclerotic heart disease of native coronary artery without angina pectoris; I11.0 Hypertensive heart disease with heart failure; I50.9 Heart failure, unspecified; G47.33 Obstructive sleep apnea (adult) (pediatric); E11.9 Type 2 diabetes mellitus without complications; E78.00 Pure hypercholesterolemia, unspecified; F17.210 Nicotine dependence, cigarettes, uncomplicated; Z79.01 Long term (current) use of anticoagulants; Z79.02 Long term (current) use of antithrombotics/antiplatelets; Z79.82 Long term (current) use of aspirin; Z79.84 Long term (current) use of oral hypoglycemic drugs; Z95.1 Presence of aortocoronary bypass graft; Z85.828 Personal history of other malignant neoplasm of skin; Z95.5 Presence of coronary angioplasty implant and graft
CPT/HCPCS: C1788; J0690; J1644; J2704

== ENCOUNTER 2024-04-12 15:37 | Emergency (ER) | payer MEDICARE, BC ==
[~2024-04-12] VITALS: Ht 177.8 cm; Wt 91.8 kg
[~2024-04-12 15:37] MED LIST changes: +COMPAZINE 110 MG/TAB PO; +CORDARONE200 MG/TAB PO; +COZAAR 25MG25 MG/TAB PO; -FORTAMET500 M1 PO; +LASIX 20MG TABL20 MG PO; -LR 1,000 ML IV SCH; +MIRALAX PA17 GM/Dose PO; +PACERONE400 MG PO; +TOPROL XL 25MG25 MG PO
[2024-04-12 15:49] VITALS: TEMP 97.9
[2024-04-12 17:13] LABS: MEAN CELL VOLUME 90 fl (80.0-100.0); MEAN CORPUSCULAR HGB CONC 31 g/dl (33.0-37.0); MEAN PLATELET VOLUME 9.1 fl (7.4-10.4); PLATELET COUNT 188 K/mm3 (130-400); RED BLOOD COUNT 3.15 M/mm3 (4.20-5.60); REDCELL DISTRIBUTION WIDTH-CV 17.1 % (11.5-14.5)
[2024-04-12 17:15] LABS: HEMATOCRIT 28.3 % (42.0-52.0); HEMOGLOBIN 8.7 g/dl (13.5-18.0); MEAN CORPUSCULAR HEMOGLOBIN 28 pg (27-31)
[2024-04-12 17:29] LABS: ALBUMIN 2.8 g/dL (3.4-4.8); BILIRUBIN,TOTAL 0.5 mg/dL (0.2-1.2); CALCIUM 9.1 mg/dL (8.4-10.2); CREATININE, serum 0.67 mg/dL (0.72-1.25); POTASSIUM 3.8 mEq/L (3.5-4.5); TOTAL PROTEIN 5.8 g/dl (6.2-8.1)
[2024-04-12 17:33] LABS: COLLECTION METHOD CLEAN CATCH
[2024-04-12 17:35] LABS: ANISOCYTOSIS 1+; BAND 10 % (0-10); EOSINOPHIL 2 % (0-4); LYMPHOCYTE 4 % (20.0-51.0); NEUTROPHILS 82 % (42.0-75.2)
[2024-04-12 17:36] LABS: OVALOCYTES 1+; TROPONIN-I 0.08 ng/mL (0.00-0.033)
[2024-04-12 17:51] LABS: URINE APPEARANCE CLEAR (CLEAR/HAZY); URINE BLOOD Negative (NEGATIVE); URINE COLOR Yellow (YELLOW); URINE GLUCOSE Negative (NEGATIVE); URINE KETONE TRACE (NEGATIVE); URINE NITRATE Negative (NEGATIVE); URINE PROTEIN(semi-quant) Negative (BEGATIVE); URINE UROBILINOGEN 0.2 E.U/dL (0.2-1.0)
[2024-04-12] MEDS ORDERED: Albumin (Human) 100 ML IV ONE (18:15)
[2024-04-12] MEDS ORDERED: Torsemide 20 MG TAB PO ONE (18:30)
[2024-04-12] MEDS ORDERED: DEMADEX 20MG20 M1 PO (18:54)
[2024-04-12 20:00] VITALS: BP 116/53; PULSE 65
--- NOTE | 2024-04-15 15:49 | NUR ---
Social work director, Raisa Black, received a call from [facility] requesting information on this patient's ER visit. SW assisted with faxing ER visit information.
== END 2024-04-12 20:00 | disposition home or self-care (01) ==
LOC: COL.ER 15:37
PROVIDERS: Physician Assistant
DX: E87.70 Fluid overload, unspecified (principal); Z87.891 Personal history of nicotine dependence
CPT/HCPCS: P9047

== ENCOUNTER → 2024-05-20 | Outpatient (CLI) | payer MEDICARE, BC ==
[~2024-05-20] VITALS: Ht 177.8 cm; Wt 84.3 kg
[~2024-05-20] MED LIST changes: +K-TAB20 PO; +LIDOCAINE HCL100 M1 MM; +MAG-OX 400400 MG/TAB PO; +ZITHROMAX 250M250 MG PO
[2024-05-20 13:16] VITALS: BP 115/63; PULSE 75; TEMP 97.6
[2024-05-20 14:22] VITALS: BP 137/76; PULSE 71
== END ==
LOC: COL.RAD 11:30
DX: R22.1 Localized swelling, mass and lump, neck (principal); Z85.9 Personal history of malignant neoplasm, unspecified

== ENCOUNTER 2024-06-27 20:28 | Emergency (ER) | payer MEDICARE, BC ==
[~2024-06-27] VITALS: Ht 177.8 cm; Wt 81.8 kg
[2024-06-27 21:12] LABS: BASO % 0.5 % (0.0-2.0); EOS % 0.3 % (0.0-4.0); GRAN # 6.8 K/mm3 (1.4-6.5); GRAN % 85.7 % (42.2-75.2); LYMPH # 0.3 K/mm3 (1.2-3.4); LYMPH % 3.4 % (20.0-51.0); MEAN CELL VOLUME 111 fl (80.0-100.0); MEAN CORPUSCULAR HGB CONC 32 g/dl (33.0-37.0); MEAN PLATELET VOLUME 8.9 fl (7.4-10.4); MONO # 0.8 K/mm3 (0.1-0.6); MONO % 9.6 % (1.7-9.3); PLATELET COUNT 218 K/mm3 (130-400); RED BLOOD COUNT 2.72 M/mm3 (4.20-5.60); REDCELL DISTRIBUTION WIDTH-CV 19.4 % (11.5-14.5)
[2024-06-27 21:14] LABS: HEMATOCRIT 30.2 % (42.0-52.0); HEMOGLOBIN 9.5 g/dl (13.5-18.0); MEAN CORPUSCULAR HEMOGLOBIN 35 pg (27-31)
[2024-06-27] MEDS ORDERED: LR 1,000 ML IV ONE ×2 (21:30)
[2024-06-27 21:35] LABS: ALBUMIN 3.1 g/dL (3.4-4.8); BILIRUBIN,TOTAL 0.8 mg/dL (0.2-1.2); CALCIUM 10.1 mg/dL (8.4-10.2); CREATININE, serum 0.83 mg/dL (0.72-1.25); MAGNESIUM 1.8 mg/dL (1.6-2.6); POTASSIUM 3.7 mEq/L (3.5-4.5); TOTAL PROTEIN 6.5 g/dl (6.2-8.1)
[2024-06-27 21:44] LABS: TROPONIN-I 0.059 ng/mL (0.00-0.033)
[2024-06-27] MEDS ORDERED: Iohexol 300 - 100 ML VIAL IV ONE (22:22)
[2024-06-27] MEDS ORDERED: Furosemide 40 MG/4 ML VIAL IV ONE (23:45)
[2024-06-27] MEDS ORDERED: LORazepam 2 MG/ML 1 ML VIAL IV ONE (23:45)
[2024-06-28] MEDS ORDERED: dexAMETHasone 10 MG/ML VIAL PO ONE (00:15)
[2024-06-28 02:15] VITALS: BP 114/54; PULSE 71; TEMP 98.7
== END 2024-06-28 02:15 | disposition short-term general hospital (02) ==
LOC: COL.ER 20:28
PROVIDERS: Emergency Medicine
DX: J18.9 Pneumonia, unspecified organism (principal); C80.1 Malignant (primary) neoplasm, unspecified; C79.31 Secondary malignant neoplasm of brain
CPT/HCPCS: J1100; J1940; J2060; J2543; J7120; Q9967